=== PATIENT | female | born 1960 | race Caucasian/White ===

== ENCOUNTER → 2016-09-19 | Outpatient (CLI) | payer BC, OTHER ==
[~2016-09-19] MED LIST: ADVAIR 100-501 EACH; ADVAIRDISKUS; ALBUTEROL INH IH; ALBUTEROL2.5 MG/31 PO; ALPRAZOLAM; ALPRAZOLAM 0.50.5 M1 PO; AMARYL2 MG; AMBIEN 10 MG TA10 MG PO; AMBIEN 5 MG TABL5 M1; AUGMENTIN 875875 M1 PO; AVELOX 400 MG400 MG OR; BUTORPHANOLNS2 NASAL; CENESTIN0.9 MG PO; CIPROFLOXACIN500 M1 PO; CYCLOBENZAPRINE10 MG PO; DAZIDOX10 MG PO; DESYREL; DESYREL100 MG OR; DESYREL100 MG PO; DESYREL150 MG PO; DIFLUCAN150 MG PO; DILAUDID 2 MG TA2 MG PO; DILAUDID 4 MG TA4 M1 PO; DOLOPHINE HCL10 MG PO; DOXYCYCLINE 10100 MG PO; EFFEXOR75 MG PO; ENDOCET 10-3251 EACH PO; ESTRADIOL 1 MG T1 M1 PO; ESTROPIPATE3 MG OR; FLEXERIL; FLEXERIL PO; FUROSEMIDE 40 M40 MG PO; GOLYTELY4000 M1 PO; HYDROXYZINE HCL10 M1 PO; K-DUR 20 MEQ T20 MEQ PO; LASIX 40 MG TAB40 M1 OR; LASIX 40 MG TAB40 M1 PO; LEVAQUIN 500 M500 M7 PO; LIDODERM 5%1 PATC1 TOP; LYRICA; LYRICA100 MG; LYRICA100 MG PO; METFORMIN HCL500 MG; METHADONE; MS CONTIN 30 MG30 M1 PO; NAPROSYN375 MG PO; NASONEB NASAL1 EACH IH; NICOTINE TRANSD21 M1 TD; NITROFURANTOIN100 MG PO; NORCO 5-325 TA1 EACH; NORCO 5-325 TA1 EACH PO; OGEN PO; OXYCONTIN10 M1 OR; PENNSAID112 GM; PERCOCET 5-3251 EACH PO; POTASSIUM20; POTASSIUM20 PO; PREDNISONE 10 M10 M1 PO; PREDNISONE 10 M10 MG; PREDNISONE 20 M20 M1 PO; PREDNISONE 20 M20 MG PO; PROTONIX40 M2 PO; PROVENTIL HFA6.7 G1 INH; QUETIAPINE FUMA25 MG PO; RELISTOR8 MG/0.4 M SQ; REMERON15 MG PO; SEROQUEL; SEROQUEL 100 M100 M1 PO; SEROQUEL 100 M100 MG PO; SEROQUEL 25 MG25 M1 PO; SEROQUEL400 MG OR; SUBOXONE 8 MG-1 EAC3 SL; TESSALON200 MG PO; TIZANIDINE HCL4 M1 PO; TRAZADONE; TRAZODONE HCL100 MG PO; TUSSIN COU10 MG/5 ML PO; VALIUM5 MG PO; VENLAFAXIN75 MG/1 T1 PO; XANAX 0.5 MG0.5 M1 PO; ZANAFLEX4 MG; ZOFRAN ODT4 MG PO; ZPAK PO
== END ==
LOC: MRI 10:32
DX: S73.102A Unspecified sprain of left hip, initial encounter (principal); M87.852 Other osteonecrosis, left femur; M25.552 Pain in left hip

== ENCOUNTER 2017-02-20 05:26 | Day surgery (SDC) | payer BC, OTHER ==
[~2017-02-20] VITALS: Ht 157.5 cm; Wt 55.3 kg
--- NOTE | ~2017-02-20 | O ---
[facility] [place] [address] OPERATIVE REPORT Name: ADAMS CAICEDO Room #: DEP [facility] M.R.#: [id number] Admission: 02/20/17 Attend Phys: Noah Kim MD Discharge: 02/20/17 Date of : 62 Report #: [id number] THIS REPORT FOR: //name// CC: NIKI Kim DATE OF SERVICE: 02/20/2017 PREOPERATIVE DIAGNOSIS: Right cubital tunnel syndrome. POSTOPERATIVE DIAGNOSIS: Right cubital tunnel syndrome. PROCEDURE: Right ulnar nerve transposition, subcutaneous. SURGEON: Noah Kim MD SAXOPHONE TEACHER: HOWARD Justice. ANESTHETIC: General. INDICATIONS: See hospital H and P. DESCRIPTION OF PROCEDURE: After adequate general anesthesia had been obtained, the patient's right upper extremity was prepped and draped in the usual meticulous sterile fashion. Limb was gravity exsanguinated and tourniquet inflated to 200 torr. A small curvilinear incision was made overlying the medial epicondyle. Subq was divided using gentle spreading technique. Hemostasis obtained with bipolar cautery. The ulnar nerve was identified proximal to the cubital tunnel, it was carefully mobilized and the fascia released proximally up to the level of the intermuscular septum. We then traced the ulnar nerve distally, released the cubital tunnel and traced the ulnar nerve out distally into muscle belly with into the muscle. The nerve was then mobilized carefully anterior to the medial epicondyle. We took the elbow through range of motion and it was noted under any tension in either flexion or extension. Then, the fascial flap was created using the flexor pronator fascia. This was then used to secure the nerve in its position anterior to the epicondyle by suturing the fascia on to itself. The nerve was taken through a full range of motion once again once the sling was in position and no tension was noted. The wound was irrigated copiously, meticulous hemostasis obtained. Deeper layer closed with 2-0 Monocryl, subq closed with 3-0 Monocryl, skin closed with a running subcuticular 2-0 Prolene. [facility] [address] [place] [address] OPERATIVE REPORT Name: ADAMS CAICEDO Room #: DEP [facility].#: [id number] Admission: 02/20/17 Attend Phys: Noah Kim MD Discharge: 02/20/17 Date of : 62 Report #: [id number] were applied and sterile compressive dressing was complied. Tourniquet deflated. Long-arm splint applied. <ELECTRONICALLY SIGNED> By: Noah Kim MD 02/26/172008 1614 1807 Noah Kim MD /nt
[~2017-02-20 05:26] MED LIST changes: +ALBUTEROL2.5 MG/31 INH; -ALBUTEROL2.5 MG/31 PO; +LINZESS290 MCG PO; +OXYCONTIN20 M1 PO; +SYMBICORT80 MCG/4.1 INH
[2017-02-20 13:35] LABS: CALCIUM 9.1 mg/dL (8.5-10.1); CREATININE 1.1 mg/dL (0.6-1.0); POTASSIUM 3.8 mmol/L (3.5-5.1)
[2017-02-20 13:45] VITALS: BP 118/72
[2017-02-20 16:42] VITALS: BP 118/72
== END 2017-02-20 17:57 | disposition home or self-care (01) ==
LOC: TBA 05:26 → OR 05:26
PROVIDERS: Anesthesiology
DX: G56.21 Lesion of ulnar nerve, right upper limb (principal); J44.9 Chronic obstructive pulmonary disease, unspecified; G43.909 Migraine, unspecified, not intractable, without status migrainosus; G35 Multiple sclerosis; F17.210 Nicotine dependence, cigarettes, uncomplicated; F41.8 Other specified anxiety disorders; Z98.890 Other specified postprocedural states; Z86.73 Personal history of transient ischemic attack (TIA), and cerebral infarction without residual deficits; Z85.828 Personal history of other malignant neoplasm of skin; Z87.442 Personal history of urinary calculi; Z90.710 Acquired absence of both cervix and uterus; Z88.6 Allergy status to analgesic agent; Z88.8 Allergy status to other drugs, medicaments and biological substances
CPT/HCPCS: 50010; 50101; 50386; 56524; 56525; 56527; 57091; 62110; 62900; 70005

== ENCOUNTER → 2019-04-11 | Outpatient (CLI) | payer BC, OTHER | LOC: RAD 10:59 | DX: Z12.31 Encounter for screening mammogram for malignant neoplasm of breast (principal) ==

== ENCOUNTER → 2019-07-14 | Outpatient (CLI) | payer OTHER | LOC: ULTRA 14:52 | DX: I70.0 Atherosclerosis of aorta (principal) ==

== ENCOUNTER 2020-05-25 15:23 | Emergency (ER) | payer OTHER ==
[~2020-05-25] VITALS: Ht 157.5 cm; Wt 49.0 kg
[2020-05-25 16:27] LABS: BASOPHILS 0.9 % (0.0-2.0); EOSINOPHILS 1.5 % (0.0-3.0); HEMATOCRIT 42.3 % (37.0-47.0); HEMOGLOBIN 14.9 gm/dL (12.0-15.0); LYMPHOCYTES 18.2 % (24.0-44.0); MCH 33.3 pg (26.0-34.0); MCHC 35.2 g/dL (28.0-37.0); MCV 94.6 fL (80.0-100.0); MONOCYTES 6.3 % (1.0-8.0); PLATELET COUNT 245 thou/uL (150-400); POLYS 73.1 % (36.0-66.0); RBC 4.47 mil/uL (4.20-5.00); RDW 12.9 % (10.5-14.5); WBC 6.8 thou/uL (4.0-11.0)
[2020-05-25 16:30] LABS: CALCIUM 9.2 mg/dL (8.5-10.1); CREATININE 1.8 mg/dL (0.6-1.0); POTASSIUM 3.1 mmol/L (3.5-5.1)
[2020-05-25 16:36] LABS: ALBUMIN 3.4 g/dL (3.4-5.0); TOTAL BILIRUBIN 0.5 mg/dL (0.2-1.0)
[2020-05-25] MEDS ORDERED: COMPAZINE25 MG RECTAL (17:40)
[2020-05-25 18:37] VITALS: BP 179/71
--- NOTE | 2020-05-26 07:21 | EKG ---
[facility] [place] [address] ELECTROCARDIOGRAM REPORT Name: ADAMS CAICEDO Room #: [facility] Derik.Mikhail#: [id number] Admission: 05/25/20 Attend Phys: Discharge: 05/25/20 Date of : 62 Report #: [id number] THIS REPORT FOR: cc: Todd Meneses MD, Neal A. MD Santiago, Patrick MD [facility] ~ THIS REPORT FOR: //name// [facility] ED Test Date: 2020-05-25 Test Time: 15:41:22 Pat Name: ADAMS CAICEDO Department: Room: Gender: F Orange Peel Operator: : 1960 Requested By: Clement Barnett Order Number: [id number] MD: Francisco Persaud Measurements Intervals [place] Rate: 94 P: 78 [place]: 174 QRS: 28 QRSD: 74 T: 36 QT: 406 QTc: 508 Interpretive Statements Sinus rhythm Biatrial enlargement Probable LVH with secondary repol abnrm Prolonged QT interval Baseline wander in lead(s) V1 Compared to ECG 08/28/2013 20:33:42 Atrial abnormality now present Prolonged QT interval now present Electronically Signed On 05-26-2020 7:21:28 MAIL SORTER by Francisco Persaud [email or web address] <ELECTRONICALLY SIGNED> By: Francisco Persaud MD, FACC 05/26/20 0721 1541 1541 Francisco Persaud MD, FAC /EPI
== END 2020-05-25 18:37 | disposition home or self-care (01) ==
LOC: ER 15:23
PROVIDERS: Nurse Practitioner
DX: G43.909 Migraine, unspecified, not intractable, without status migrainosus (principal); J44.9 Chronic obstructive pulmonary disease, unspecified; Z90.710 Acquired absence of both cervix and uterus; Z79.899 Other long term (current) drug therapy; Z88.1 Allergy status to other antibiotic agents; Z88.8 Allergy status to other drugs, medicaments and biological substances

== ENCOUNTER 2020-05-29 07:58 | Emergency (ER) | payer OTHER ==
[~2020-05-29] VITALS: Ht 160 cm; Wt 69.8 kg
[~2020-05-29 07:58] MED LIST changes: +COMPAZINE25 MG RECTAL
[2020-05-29] MEDS ORDERED: ZESTRIL10 MG PO (11:36)
[2020-05-29 11:54] VITALS: BP 120/63
== END 2020-05-29 12:19 | disposition home or self-care (01) ==
LOC: ER 07:58
DX: G43.909 Migraine, unspecified, not intractable, without status migrainosus (principal); I10 Essential (primary) hypertension; J44.9 Chronic obstructive pulmonary disease, unspecified; Z90.710 Acquired absence of both cervix and uterus; Z79.899 Other long term (current) drug therapy; Z88.1 Allergy status to other antibiotic agents; Z88.8 Allergy status to other drugs, medicaments and biological substances; Z20.828 Contact with and (suspected) exposure to other viral communicable diseases

== ENCOUNTER 2020-06-09 11:13 | Inpatient (IN) | payer OTHER ==
[~2020-06-09] VITALS: Ht 152.4 cm; Wt 51.4 kg
[~2020-06-09 11:13] MED LIST changes: +ZESTRIL10 MG PO
[2020-06-09 11:22] VITALS: BP 215/80
[2020-06-09 14:58] LABS: AMP/METHAMP Negative (Negative); BARBITURATES Negative (Negative); BENZODIAZEPINES POSITIVE (Negative); COCAINE Negative (Negative); METHADONE Negative (Negative); OPIATES Negative (Negative); PCP Negative (Negative)
[2020-06-09 18:34] LABS: ABSOLUTE NEUTROPHILS 9.8 thou/uL (1.4-8.2); BASOPHILS 0.2 % (0.0-2.0); EOSINOPHILS 1.3 % (0.0-3.0); HEMATOCRIT 40.6 % (37.0-47.0); HEMOGLOBIN 13.3 gm/dL (12.0-15.0); LYMPHOCYTES 14.7 % (24.0-44.0); MCH 32.1 pg (26.0-34.0); MCHC 32.7 g/dL (28.0-37.0); MCV 98.2 fL (80.0-100.0); MONOCYTES 2.8 % (1.0-8.0); PLATELET COUNT 192 thou/uL (150-400); RBC 4.14 mil/uL (4.20-5.00); RDW 14.3 % (10.5-14.5); WBC 12.1 thou/uL (4.0-11.0)
[2020-06-09 18:42] LABS: CALCIUM 8.1 mg/dL (8.5-10.1); CREATININE 1.3 mg/dL (0.6-1.0); POTASSIUM 3.4 mmol/L (3.5-5.1)
[2020-06-09 18:58] LABS: TROPONIN-I 0.19 ng/mL (<0.06)
--- NOTE | 2020-06-09 19:13 | NUR ---
RETURNED FROM CT SCAN
[2020-06-09 20:54] VITALS: BP 126/54
[2020-06-09 21:46] VITALS: BP 135/62
[2020-06-09 22:00] VITALS: BP 160/74
[2020-06-09 23:54] VITALS: BP 153/53
--- NOTE | 2020-06-10 02:25 | NUR ---
PATIENT WAS A NEW ADMISSION TO THE UNIT THIS SHIFT. SHE ARRIVED VIA CART FROM THE ER AND WAS ABLE TO AMBULATE TO THE BED WITH ASSISTANCE INCIDENT FREE. PATIENT IS FULLY ALERT AND ORIENTED. DURING THE COURSE OF THE ADMISSION PATIENT STATED ALERTED NURSE TO POTENTIAL COVID SYMPTOMS THAT REQUIRED NURSE TO CHECK WITH PROVIDER. COVID SWAB ORDERED FOR PATIENT BUT DUE TO CENSUS PATIENT NOT ABLE TO TRANSFER OFF UNIT. DOOR CLOSED WITH NURSING STAFF SUPPLIED N95 AND GOWNS. PATIENT HAS STATED TO THIS NURSE THAT SHE FELL IN EMERGENCY ROOM EARLIER IN DAY. SHE STATED NO PAIN OR INJURY FROM FALL TO NURSE AND ACCOUNTS RECEIVABLE SUPERVISOR ON UNIT. HIGH FALL RISK WITH ALL PRECAUTIONS TAKEN. NURSE TO CONTINUE MONITORING.
[2020-06-10 04:12] VITALS: BP 168/79
[2020-06-10 05:25] VITALS: BP 149/78
[2020-06-10 06:27] LABS: HEMATOCRIT 38.4 % (37.0-47.0); HEMOGLOBIN 12.7 gm/dL (12.0-15.0); MCH 32.3 pg (26.0-34.0); MCHC 33.2 g/dL (28.0-37.0); MCV 97.2 fL (80.0-100.0); RBC 3.95 mil/uL (4.20-5.00); RDW 14.1 % (10.5-14.5); WBC 8.3 thou/uL (4.0-11.0)
--- NOTE | 2020-06-10 06:27 | NUR ---
PATIENT SLEPT SOME OF THE NIGHT. A&0X4. FALL PRECAUTIONS ON PLACE. UPX1 TO BSC. COVID (-). NO COMPLAINTS OF CHEST PAIN. NO COMPLAINTS OF SOA; ON 2L. CONTINUING TO ASSESS ACCORDING TO POC.
[2020-06-10 06:46] LABS: ALBUMIN 3.1 g/dL (3.4-5.0); CALCIUM 8.5 mg/dL (8.5-10.1); CREATININE 1.4 mg/dL (0.6-1.0); TOTAL BILIRUBIN 0.2 mg/dL (0.2-1.0); TROPONIN-I 0.12 ng/mL (<0.06)
[2020-06-10 06:47] LABS: POTASSIUM 4.6 mmol/L (3.5-5.1)
--- NOTE | 2020-06-10 07:20 | EKG ---
[address] [place] [address] ELECTROCARDIOGRAM REPORT Name: ADAMS CAICEDO Room #: 209-P ADM IN M.R.#: [id number] Admission: 06/09/20 Attend Phys: Todd Meneses MD Discharge: Date of : 62 Report #: [id number] [facility] ED Test Date: 2020-06-09 Test Time: 17:45:03 Pat Name: ADAMS CAICEDO Department: Room: 209 Gender: F Flask Cleaner: BETTYE : 1960 Requested By: Clement Barnett Order Number: [id number] MD: Francisco Persaud Measurements Intervals [place] Rate: 62 P: 63 VA: 136 QRS: 21 QRSD: 66 T: 94 QT: 411 QTc: 418 Interpretive Statements Sinus rhythm Probable left atrial enlargement Nonspecific T abnormalities, lateral leads Compared to ECG 05/25/2020 15:41:22 T-wave abnormality now present Prolonged QT interval no longer present Electronically Signed On 06-10-2020 7:20:04 TV PRODUCTION ASSISTANT by Francisco Persaud [email or web address] <ELECTRONICALLY SIGNED> By: Francisco Persaud MD, [facility] 06/10/20 0720 1745 174 Francisco Persaud MD, [facility] /EPI
[2020-06-10 08:23] VITALS: BP 151/63
--- NOTE | 2020-06-10 11:05 | 2DMMODE ---
[facility] [place] [address] 2 D/M-MODE ECHOCARDIOGRAM Name: ADAMS CAICEDO Room #: 209-P ADM IN M.R.#: [id number] Admission: 06/09/20 Attend Phys: Todd Meneses MD Discharge: Date of : 62 Report #: [id number] THIS REPORT FOR: cc: Todd Meneses MD, Neal A. MD Santiago, Patrick MD [facility] ~ APPROVED REPORT Study performed: 06/10/2020 10:18:31 EXAM: Comprehensive 2D, Doppler, and color-flow Echocardiogram Patient Location: Bedside Room #: 209 Status: routine BSA: 1.46 HR: 85 bpm BP: 151/63 mmHg Rhythm: NSR Other Information Study Quality: Good Indications Chest pain, elevated troponin. Hx: COPD, CVA, PVD. 2D Dimensions RVDd: 32.62 mm IVSd: 12.00 (7-11mm) LVOT Diam: 19.00 (18-24mm) LVDd: 40.00 mm PWd: 12.00 (7-11mm) Ascending Ao: 28.00 (22-36mm) LVDs: 29.00 (25-40mm) Aortic Root: 29.00 mm Volumes Left Atrial Volume (Systole) Single Plane 4CH: 50.48 mL Single Plane 2CH: 57.18 mL LA ESV Index: 40.00 mL/m2 Aortic Valve AoV Peak Joe.: 1.20 m/s AO Peak Gr.: 5.73 mmHg LVOT Max P.44 mmHg LVOT Max V: 0.93 m/s CELINE Vmax: 2.16 cm2 [facility] [address] [address] 2 D/M-MODE ECHOCARDIOGRAM Name: MINORMARLONDANTE WILKINSONZI NAHID Room #: 209-P [facility]#: [id number] Admission: 06/09/20 Attend Phys: Todd Meneses, Discharge: Date of : 62 Report #: [id number] Mitral Valve E/A Ratio: 1.3 MV Decel. Time: 178.70 ms MV E Max Jeo.: 1.13 m/s MV A Joe.: 0.86 m/s MV PHT: 51.82 ms IVRT: 72.66 ms Pulmonary Valve PV Peak Joe.: 1.09 m/s PV Peak Gr.: 4.72 mmHg Pulmonary Vein P Vein S: 0.80 m/s P Vein D: 0.56 m/s P Vein S/D Ratio: 1.43 Tricuspid Valve TR Peak Joe.: 2.80 m/s RAP Estimate: 10.00 mmHg TR Peak Gr.: 31.37 mmHg PA Pressure: 41.00 mmHg Left Ventricle The left ventricle is normal size. There is normal LV segmental wall motion. Mild concentric left ventricular hypertrophy. Left ventricular systolic function is normal. LVEF is 55-60%. Moderate diastolic dysfunction is present. Right Ventricle The right ventricle is normal size. The right ventricular systolic function is normal. Atria Left atrium is mildly dilated. The right atrium size is normal. Aortic Valve Aortic valve leaflets are mildly thickened and calcified. No aortic regurgitation is present. There is no aortic valvular stenosis. Mitral Valve Mitral valve leaflets are mildly thickened and calcified. Moderate mitral regurgitation. No evidence of mitral valve stenosis. [facility] [address] [address] 2 D/M-MODE ECHOCARDIOGRAM Name: MINORMARLONJAJAADAMS Room #: 209-P [facility] IN M.R.#: [id number] Admission: 06/09/20 Attend Phys: Todd Meneses, Discharge: Date of : 62 Report #: [id number] Tricuspid Valve The tricuspid valve is normal in structure. Trace tricuspid regurgitation. Estimated PAP is 40mmHg. Pulmonic Valve The pulmonary valve is normal in structure. There is no pulmonic valvular regurgitation. Great Vessels The aortic root is normal in size. The ascending aorta is normal in size. IVC is dilated and collapses <50% with inspiration. <Conclusion> Normal left ventricle size Mild concentric hypertrophy Grade 1 diastolic dysfunction EF 55% Normal right ventricular size/function Left atrium mildly dilated Color-flow Doppler study was performed aortic/mitral/tricuspid/valve. Mild aortic valve calcification without stenosis Moderate/eccentric mitral valve insufficiency Trace tricuspid valve insufficiency Pulmonary systolic pressure estimated at 40 mmHg No pericardial effusion <ELECTRONICALLY SIGNED> By: Francisco Persaud MD, FACC 06/10/201104 04 04 Francisco Persaud MD, FACC /INF
[2020-06-10 11:38] VITALS: BP 151/63
[2020-06-10 11:43] VITALS: BP 177/73
--- NOTE | 2020-06-10 14:11 | NUR ---
AAOX4. DENIES CP, SOA. DISCHARGING TO HOME AFTER ECHO. GIVEN LITERATURE R/T CHRONIC MIGRAINES. HOME WITH HER .
== END 2020-06-10 15:29 | disposition home or self-care (01) | DRG 915 ==
LOC: ER 11:13 → EROBS 20:23 → 2N 20:23
PROVIDERS: Emergency Medicine; Nurse Practitioner; ADMIT Family Medicine; ATTEND Family Medicine
DX: T78.2XXA Anaphylactic shock, unspecified, initial encounter (principal); I21.4 Non-ST elevation (NSTEMI) myocardial infarction; G43.909 Migraine, unspecified, not intractable, without status migrainosus; J44.9 Chronic obstructive pulmonary disease, unspecified; F41.9 Anxiety disorder, unspecified; F43.10 Post-traumatic stress disorder, unspecified; G89.29 Other chronic pain; M54.5 Low back pain; F17.210 Nicotine dependence, cigarettes, uncomplicated; F12.90 Cannabis use, unspecified, uncomplicated; Y84.8 Other medical procedures as the cause of abnormal reaction of the patient, or of later complication, without mention of misadventure at the time of the procedure; Y92.89 Other specified places as the place of occurrence of the external cause; Z90.710 Acquired absence of both cervix and uterus; Z86.73 Personal history of transient ischemic attack (TIA), and cerebral infarction without residual deficits; Z88.6 Allergy status to analgesic agent; Z88.8 Allergy status to other drugs, medicaments and biological substances; Z20.828 Contact with and (suspected) exposure to other viral communicable diseases
CPT/HCPCS: 10081

== ENCOUNTER 2020-06-15 08:49 | Inpatient (IN) | payer OTHER ==
[~2020-06-15] VITALS: Ht 154.9 cm; Wt 54.5 kg
[2020-06-15 09:06] VITALS: BP 241/139
[2020-06-15 09:38] LABS: BASOPHILS 0.4 % (0.0-2.0); HEMATOCRIT 49.1 % (37.0-47.0); HEMOGLOBIN 16.8 gm/dL (12.0-15.0); LYMPHOCYTES 6.3 % (24.0-44.0); MCH 32.4 pg (26.0-34.0); MCHC 34.3 g/dL (28.0-37.0); MCV 94.7 fL (80.0-100.0); PLATELET COUNT 324 thou/uL (150-400); POLYS 89.3 % (36.0-66.0); RBC 5.18 mil/uL (4.20-5.00); RDW 13.7 % (10.5-14.5); WBC 15.7 thou/uL (4.0-11.0)
[2020-06-15 09:53] LABS: CREATININE 1.4 mg/dL (0.6-1.0); POTASSIUM 3.6 mmol/L (3.5-5.1)
[2020-06-15 09:54] LABS: APTT 28.6 Seconds (24.5-32.8); INR 1.1; PROTIME 11.5 Seconds (9.3-11.4)
[2020-06-15 10:03] LABS: MAGNESIUM 1.7 mg/dL (1.8-2.4); TOTAL BILIRUBIN 0.6 mg/dL (0.2-1.0); TOTAL PROTEIN 7.9 g/dL (6.4-8.2); TROPONIN-I 0.15 ng/mL (<0.06)
--- NOTE | 2020-06-15 12:46 | EKG ---
[place] [address] [facility] [place] [address] ELECTROCARDIOGRAM REPORT Name: ADAMS CAICEDO [id number] Admission: 06/15/20 Attend Phys: Discharge: Date of : 62 Report #: [id number] [facility] ED Test Date: 2020-06-15 Test Time: 09:13:19 Pat Name: ADAMS CAICEDO Department: Room: Gender: F Cut Out Marker: MURIEL : 1960 Requested By: Duke Mascorro Order Number: [id number] MD: Francisco Persaud Measurements Intervals [place] Rate: 130 P: 88 VT: 141 QRS: 23 QRSD: 71 T: QT: 331 QTc: 487 Interpretive Statements Sinus tachycardia Consider right atrial enlargement Consider left ventricular hypertrophy Borderline prolonged QT interval Compared to ECG 06/09/2020 17:45:03 Sinus rhythm no longer present T-wave abnormality no longer present Electronically Signed On 06-15-2020 12:46:07 REWINDER OPERATOR by Francisco Persaud [email or web address] <ELECTRONICALLY SIGNED> By: Francisco Persaud MD, [facility] 06/15/20 1246 2 2 Francisco Persaud MD, FACC /EPI
--- NOTE | 2020-06-15 14:56 | NUR ---
Patient is a [address] y/[address] female of Dr. Meneses presenting to the ED c/o BANG to her posterior head. She notes her BANG was "all over " earlier. Patient states her sx initially started about 1 month ago and started worsening yesterday. She measured her BP x3 yesterday, with systolic pressures of 222, 223, and 171. Per patient's , patient took her medication and a migraine medication prior to her blood pressure dropping to 171. Last night, she vomited several times. This morning while she was at home, her BP was 253/139 and her HR was 122. Per patient's , patient was started on Lisinopril by Dr. Cisneros on 06/07/20. Patient's notes that this was the first time she's ever been started on a HTN medication. He further reports she was seen by [facility] on 06/09/20. She was admitted at that time and discharged the following day. While she was hospitalized, she underwent an echocardiogram and had an elevated troponin. Patient does have a Hx of CVA with deficits of left-sided weakness. Dr. Meneses agrees with plan for admission to CCU. Dr. Meneses advised CTA head and neck to r/o aneurysm. Consults to Neuro with Dr. Burnett and cardiology with Dr. Hadley have been called in. The patient has her spouse listed as contact of Saran Perales with phone numbers of [phone] or cell of [phone]. The patient discharged on 06-10-2020 and required no CM intervention at that time. CM will follow case for any discharge needs.
[2020-06-16] VITALS (10 sets, daily range): BP systolic 124–169; BP diastolic 59–91
--- NOTE | 2020-06-16 00:08 | NUR ---
TALKED WITH DR AGUILAR ABOUT ELEVATED TROP. PT DENIES CHEST PAIN, AND IS TRENDING DOWN FROM LAST TROP. PER DR AGUILAR, NO NEW ORDERS FOR FURTHER TROPONINS.
--- NOTE | 2020-06-16 05:40 | NUR ---
PATIENTS CARE WERE ASSUMED AFTER TRANSFER. PATIENT WAS ASSESSED AND MEDS WERE PASSED. PATIENT WANTS MORE PAIN MEDS. PATIENT HAS CARDIO CONSULT. THIS PATIENT WAS VERY SADATED WHEN SHE COME FROM THE ER. SUNDEEP TO UP MED LIST IN THE MORNING
[2020-06-16 06:53] LABS: ANION GAP 16 mmol/L (7-16); BUN 14 mg/dL (7-18); CALCIUM 8.9 mg/dL (8.5-10.1); CHLORIDE 97 mmol/L (98-107); CHOLESTEROL 301 mg/dL (<200); CO2 21 mmol/L (21-32); CREATININE 1.2 mg/dL (0.6-1.0); GLUCOSE 87 mg/dL (74-106); HDL CHOLESTEROL 72 mg/dL (>40); LDL CHOLESTEROL 198 mg/dL (<100); POTASSIUM 3.7 mmol/L (3.5-5.1); SODIUM 134 mmol/L (136-145); TC:HDL 4.2 Ratio (Not establshd); TRIGLYCERIDE 157 mg/dL (<150); TROPONIN-I 0.14 ng/mL (<0.06); VLDL 31 mg/dL (<40)
[2020-06-16 06:54] LABS: SERUM ASSESSMENT Clear
--- NOTE | 2020-06-16 14:50 | NUR ---
ASSESSMENT: CM REVIEWED CHART AND SPOKE WITH PT AND HER WHO WAS AT THE BEDSIDE. PT IS ALERT AND ORIENTED X4. PT WAS ADMITTED DUE TO HYPERTENSIVE UGRENCY AND INTRACTIBLE HEADACHE. PT DOES ALSO HAVE A HX OF CVA AND LEFT SIDED WEAKNESS. PT REPORTS LIVING AT HOME WITH HER SPOUSE. PT HAS ABOUT 7 STEPS SHE HAS TO USE IN THE HOME. PT REPORT SHE CAN NORMALLY WALK INDEPENDENTLY IN THE HOME BUT DOES HAVE A WALKER AND HAS A WHEELCHAIR FOR OUTSIDE OF THE HOME. PT REPORTS THAT SHE HAS NOT HAD HH IN THE PAST. PT WAS ON CARDENE GTT BUT THIS HAS BEEN DISCONTINUED. PLANS ARE FOR PATIENT TO POSSIBLE DISCHARGE HOME TOMORROW. CM WILL CONTINUE TO FOLLOW TO ASSIST NEDED.
--- NOTE | 2020-06-16 18:47 | NUR ---
PT CARE ASSUMED AT 0700. ASSESSMENTS CHARTED. MEDICATIONS CHARTED. RAC IV. LFA IV. SINUS RHYTHM. PT DROWSY ALL DAY. PT FOCUSED ON PAIN MEDS AND DIAZEPAM; WANTS TO TAKE THEM BOTH TOGETHER. NUC MED STRESS TEST TOMORROW. NPO AFTER 0000. NO NITRO AFTER 0000.
[2020-06-17 04:45] VITALS: BP 105/50
[2020-06-17] MEDS ORDERED: CLOPIDOGREL75 MG PO (07:28)
[2020-06-17] MEDS ORDERED: LIPITOR40 MG PO (07:33)
[2020-06-17] MEDS ORDERED: METOPROLOL TART25 MG PO (07:33)
[2020-06-17] MEDS ORDERED: LYRICA 75 MG CA75 MG PO (07:34)
[2020-06-17] MEDS ORDERED: AMITRIPTYLINE H25 M2 PO (07:35)
--- NOTE | 2020-06-17 07:37 | NUR ---
PATIENTS CARE WERE ASSUMED AT SHIFT CHANGE. PATIENT WAS ASSESSED AND MEDS WERE PASSED. ALL NARCOTICS AND SADATIVE MEDS WERE HELD THIS SHIFT. DR. URBANO WAS INFORMED AND AGREED. PATIENT O2 SATS WERE FOUND AT 88% AND PLACED ON 2L O2 N.C. THE BED IS IN A LOW AND LOCKED POSITION.
[2020-06-17 08:05] VITALS: BP 160/80
[2020-06-17 08:14] VITALS: BP 160/80
[2020-06-17 11:47] VITALS: BP 169/67
[2020-06-17 12:05] VITALS: BP 169/67
[2020-06-17 14:27] VITALS: BP 169/67
--- NOTE | 2020-06-17 16:52 | NUR ---
PT CARE ASSUMED AT 0700. ASSESSMENTS CHARTED. MEDICATIONS CHARTED. RAC IV. LFA IV. SINUS RHYTHM. NUC MED STRESS TEST PERFORMED. PT DISCHARGED HOME. DISCHARGE PAPERWORK SIGNED. PRESCRIPTIONS DELIVERED. TELEMETRY D/C'D. IV D/C'D.
== END 2020-06-17 15:01 | disposition home or self-care (01) | DRG 682 ==
LOC: ER 08:49 → EROBS 13:38 → 2N 13:38
PROVIDERS: Emergency Medicine; Nurse Practitioner; ADMIT Family Medicine; ATTEND Family Medicine
DX: I12.9 Hypertensive chronic kidney disease with stage 1 through stage 4 chronic kidney disease, or unspecified chronic kidney disease (principal); R65.11 Systemic inflammatory response syndrome (SIRS) of non-infectious origin with acute organ dysfunction; N17.9 Acute kidney failure, unspecified; I69.354 Hemiplegia and hemiparesis following cerebral infarction affecting left non-dominant side; N17.8 Other acute kidney failure; I16.0 Hypertensive urgency; J44.9 Chronic obstructive pulmonary disease, unspecified; J45.909 Unspecified asthma, uncomplicated; F41.9 Anxiety disorder, unspecified; G43.909 Migraine, unspecified, not intractable, without status migrainosus; F12.90 Cannabis use, unspecified, uncomplicated; N18.9 Chronic kidney disease, unspecified; E86.0 Dehydration; R73.9 Hyperglycemia, unspecified; F17.210 Nicotine dependence, cigarettes, uncomplicated; R00.0 Tachycardia, unspecified; I65.22 Occlusion and stenosis of left carotid artery; G89.29 Other chronic pain; E78.5 Hyperlipidemia, unspecified; Z71.6 Tobacco abuse counseling; Z90.710 Acquired absence of both cervix and uterus; Z90.722 Acquired absence of ovaries, bilateral; Z88.1 Allergy status to other antibiotic agents; Z88.8 Allergy status to other drugs, medicaments and biological substances; Z88.6 Allergy status to analgesic agent; Z82.49 Family history of ischemic heart disease and other diseases of the circulatory system
CPT/HCPCS: 10081

== ENCOUNTER 2020-06-19 12:44 | Inpatient (IN) | payer OTHER ==
[~2020-06-19] VITALS: Ht 154.9 cm; Wt 49.9 kg
[~2020-06-19 12:44] MED LIST changes: +AMITRIPTYLINE H25 M2 PO; +CLOPIDOGREL75 MG PO; +LIPITOR40 MG PO; +LYRICA 75 MG CA75 MG PO; +METOPROLOL TART25 MG PO
[2020-06-19 12:53] VITALS: BP 195/96
[2020-06-19 13:58] LABS: BE(vivo) 0 mmol/L (-2 to +3); HCO3 24.7 mmol/L (22.0-26.0); PCO2 40.5 mmHg (35.0-45.0); PO2 86.3 mmHg (80.0-100.0); pH 7.403 (7.360-7.450); sO2 96.6 % (92.0-98.0)
[2020-06-19 14:12] LABS: ABSOLUTE NEUTROPHILS 8.3 thou/uL (1.4-8.2); BASOPHILS 0.5 % (0.0-2.0); EOSINOPHILS 0.2 % (0.0-3.0); HEMATOCRIT 41.6 % (37.0-47.0); HEMOGLOBIN 13.7 gm/dL (12.0-15.0); LYMPHOCYTES 8.1 % (24.0-44.0); MCH 31.9 pg (26.0-34.0); MCHC 32.9 g/dL (28.0-37.0); MCV 97.1 fL (80.0-100.0); MONOCYTES 5.7 % (1.0-8.0); PLATELET COUNT 168 thou/uL (150-400); POLYS 85.5 % (36.0-66.0); RBC 4.28 mil/uL (4.20-5.00); RDW 14.1 % (10.5-14.5); WBC 9.7 thou/uL (4.0-11.0)
[2020-06-19 14:51] LABS: CALCIUM 9.2 mg/dL (8.5-10.1); CREATININE 1.4 mg/dL (0.6-1.0); POTASSIUM 3.8 mmol/L (3.5-5.1)
[2020-06-19 14:53] LABS: APTT 26.6 Seconds (24.5-32.8); INR 1.1; PROTIME 11.2 Seconds (9.3-11.4)
[2020-06-19 15:05] LABS: ALBUMIN 3.2 g/dL (3.4-5.0); TOTAL BILIRUBIN 0.5 mg/dL (0.2-1.0); TOTAL PROTEIN 6.3 g/dL (6.4-8.2); TROPONIN-I 0.13 ng/mL (<0.06)
[2020-06-19 16:46] VITALS: BP 180/88
[2020-06-19 18:03] LABS: URINE BILIRUBIN NEGATIVE (Negative); URINE BLOOD NEGATIVE (Negative); URINE CLARITY CLEAR; URINE COLOR YELLOW; URINE GLUCOSE-RANDOM* NEGATIVE (Negative); URINE KETONES NEGATIVE (Negative); URINE LEUKOCYTES-REFLEX NEGATIVE (Negative); URINE NITRITE-REFLEX NEGATIVE (Negative); URINE PROTEIN (DIPSTICK) 1+ (Negative); URINE UROBILINOGEN 0.2 E.U./dl (0.2-1.0)
[2020-06-19 18:15] LABS: BACTERIA-REFLEX None Seen /HPF (None Seen); CASTS None Seen /LPF (None Seen); CRYSTALS None Seen /LPF (None Seen); SQUAMOUS >10 Many /LPF (0-3); URINE RBC 0-2 Rare /HPF (0-2); URINE WBC-REFLEX 0-5 Rare /HPF (0-5)
[2020-06-19 20:38] VITALS: BP 152/77
[2020-06-20 00:45] VITALS: BP 187/95
[2020-06-20 04:13] VITALS: BP 156/78
--- NOTE | 2020-06-20 09:31 | EKG ---
[address] [place] [address] ELECTROCARDIOGRAM REPORT Name: ADAMS CAICEDO Room #: 170-8 ADM IN M.R.#: [id number] Admission: 06/19/20 Attend Phys: Todd Meneses MD Discharge: Date of : 62 Report #: [id number] [facility] ED Test Date: 2020-06-19 Test Time: 14:13:12 Pat Name: ADAMS CAICEDO Department: Room: 170 Gender: F [employer]: BETTYE : 1960 Requested By: Noah Duke Order Number: [id number] MD: Aj Barton Measurements Intervals [place] Rate: 79 P: 56 ME: 148 QRS: -2 QRSD: 72 T: 146 QT: 367 QTc: 421 Interpretive Statements Sinus rhythm Probable left atrial enlargement LVH with secondary repolarization abnormality Compared to ECG 06/15/2020 09:13:19 Early repolarization now present Sinus tachycardia no longer present Electronically Signed On 06-20-2020 9:31:18 VENDOR ANALYST by Aj Barton [email or web address] <ELECTRONICALLY SIGNED> By: Aj Barton MD 06/20/20 0931 1413 1413 Aj Barton MD /JON
[2020-06-20 14:30] VITALS: BP 172/85
[2020-06-20 16:01] VITALS: BP 166/99
[2020-06-20 19:31] VITALS: BP 123/71
--- NOTE | 2020-06-20 19:39 | NUR ---
[age] YEAR OLD FEMALE ADMITTED TO [email or web address] ROOM [address] URBANO. PT WAS BROUGHT INTO THE ER BY HER AFTER C/O SOA, WEAKNESS AND LOW O2 SAT. PT WAS JUST DISCHARGED LAST WEEEK. PT ALERT AND ORIENTED TIMES FOUR. BP ELEVATED OTHER VSS. 02 2L. PT C/O BACK PAIN SCHEDULED PAIN MEDICATION CONTROLLING PAIN WELL. PT UP TO REST ROOM WITH STANDBY ASSIST. PT AT BEDSIDE DURING ADMISSION. WILL CONTINUE TO MONITOR.
[2020-06-20 23:22] LABS: BE(vivo) 0.6 mmol/L (-2 to +3); HCO3 30.4 mmol/L (22.0-26.0); sO2 95.2 % (92.0-98.0)
[2020-06-20 23:26] LABS: pH 7.238 (7.360-7.450)
[2020-06-21] VITALS (9 sets, daily range): BP systolic 118–212; BP diastolic 51–104
--- NOTE | 2020-06-21 06:03 | NUR ---
ASSSUMED CARE PT AT 1900HRS. PT AOX4 AND LETS NEEDS BE KNOWN. FALL PRECAUTION IN PLACE. ASSESSMENT CHARTED. PT RAN SA ON TELE. AROUND 2300 RAPID REPONSE WAS CALLED DUE TO SOA AND TACHYPNEA. PLEASE SEE EVENT CHARTING. PT WAS LATER PLACED ON BIPAP. PHYSICIAN NOTIDIED. ORDERS RECEIVED AND STARTED. PT TRANSFERRED TO ROOM 209. REPORT GIVEN TO ONCOMING NURSE.
--- NOTE | 2020-06-21 07:21 | EKG ---
[address] [place] [address] ELECTROCARDIOGRAM REPORT Name: ADAMS CAICEDO Room #: 209-P ADM IN M.R.#: [id number] Admission: 06/19/20 Attend Phys: Todd Meneses MD Discharge: Date of : 62 Report #: [id number] [facility] Test Date: 2020-06-20 Test Time: 23:16:07 Pat Name: ADAMS CAICEDO Department: Room: 209 Gender: F Drying Supervisor: AISHWARYA : 1960 Requested By: Todd Meneses Order Number: [id number] MD: Deion Abernathy Measurements Intervals [place] Rate: 142 P: 72 RI: 150 QRS: 22 QRSD: 77 T: 177 QT: 273 QTc: 420 Interpretive Statements Sinus tachycardia Poor R wave progression Nonspecific ST and T wave abnormality Baseline wander in lead(s) II,III,aVF Compared to ECG 06/19/2020 14:13:12 Nonspecific change in the ST and T wave segments Electronically Signed On 06-21-2020 7:21:03 AIRDOX FITTER by Deion Abernathy [email or web address] <ELECTRONICALLY SIGNED> By: Deion Abernathy MD, [facility] 06/21/20 0721 2316 2316 Deion Abernathy MD, [facility] /EPI
--- NOTE | 2020-06-21 08:03 | NUR ---
RECEIVED REPORT FROM [facility] NURSE.PATIENT ON BIPAP WHEN TRANSFERRED TO ROOM 209.BP ELEVATED.LABETALOL GIVEN ORDERED.VOMITTED AND COMPLAIN OF HEADACHE TOO.VOIDS PER BEDPAN.MONITOR SHOWS SR,ST.POC CONTINUED.
[2020-06-21 08:10] LABS: BE(vivo) 10.3 mmol/L (-2 to +3); HCO3 36.4 mmol/L (22.0-26.0); PCO2 53.9 mmHg (35.0-45.0); PO2 100.9 mmHg (80.0-100.0); pH 7.447 (7.360-7.450); sO2 97.7 % (92.0-98.0)
[2020-06-21 08:29] LABS: HEMATOCRIT 42.5 % (37.0-47.0); MCH 31.9 pg (26.0-34.0); MCHC 33.1 g/dL (28.0-37.0); MCV 96.3 fL (80.0-100.0); RBC 4.41 mil/uL (4.20-5.00); WBC 16.3 thou/uL (4.0-11.0)
[2020-06-21 08:43] LABS: CALCIUM 8.9 mg/dL (8.5-10.1); CREATININE 1.5 mg/dL (0.6-1.0); POTASSIUM 3.3 mmol/L (3.5-5.1)
--- NOTE | 2020-06-21 18:30 | NUR ---
PT CARE ASSUMED AT 0700. ASSESSMENTS CHARTED. MEDICATIONS CHARTED. RAC IV. BEDPAN/TOILET. BIPAP ON S/B. 3 LPM NC. RENAL ANGIOGRAPHY 06/22/20. NPO EXCEPT MEDS AND SIPS OF LIQUID.
[2020-06-22] VITALS (12 sets, daily range): BP systolic 106–161; BP diastolic 49–89
--- NOTE | 2020-06-22 07:39 | NUR ---
NPO SINCE MIDNIGHT.UNABLE TO URINATE.INDWELLING CATH WAS PLACED ORDERED.URINE SAMPLE SENT.MONITOR SHOWS SR.POC CONTINUED.
[2020-06-22 07:40] LABS: AMP/METHAMP Negative (Negative); BARBITURATES Negative (Negative); BENZODIAZEPINES POSITIVE (Negative); COCAINE Negative (Negative); METHADONE Negative (Negative); OPIATES POSITIVE (Negative); PCP Negative (Negative)
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
--- NOTE | 2020-06-22 18:59 | NUR ---
PT CARE ASSUMED AT 0700. ASSESSMENTS CHARTED. MEDICATIONS CHARTED. RAC IV. SINUS RHYTHM. THAYER. ACHS. NPO UNTIL 1410. RT GROIN, MYNX. 2 STENTS LT RENAL ARTERY. HEMOSTASIS 1410 UNTIL 1710. BIPAP ON S/B. O2 3LPM NC. PT ASKS FOR PAIN MEDS OFTEN.
--- NOTE | 2020-06-23 04:07 | NUR ---
Assumed pt care at 1900. Pt is alert and oriented. No sign of distress noted. Pt is laying in bed resting. Continue to verbalize pain. Groin site in intact. Assessment completed and documented. Scheduled meds administered to pt. Tolerated PO intake. No acute events overnight. Continue to monitor. No further needs at this time.
[2020-06-23 04:48] VITALS: BP 117/55
[2020-06-23 05:36] LABS: CALCIUM 8.6 mg/dL (8.5-10.1); CREATININE 1.8 mg/dL (0.6-1.0); POTASSIUM 3.6 mmol/L (3.5-5.1)
[2020-06-23 06:30] LABS: HEMATOCRIT 30.1 % (37.0-47.0); MCH 32.7 pg (26.0-34.0); MCHC 34.1 g/dL (28.0-37.0); RBC 3.14 mil/uL (4.20-5.00); RDW 13.6 % (10.5-14.5); WBC 15.8 thou/uL (4.0-11.0)
[2020-06-23 06:31] LABS: HEMOGLOBIN 10.3 gm/dL (12.0-15.0)
[2020-06-23 07:23] VITALS: BP 111/53
[2020-06-23] MEDS ORDERED: ASPIR 8181 MG PO (08:42)
[2020-06-23] MEDS ORDERED: CLOPIDOGREL75 MG PO (08:42)
[2020-06-23] MEDS ORDERED: BYSTOLIC 5 MG5 M1 PO (08:42)
[2020-06-23 11:36] VITALS: BP 115/44
[2020-06-23 15:20] LABS: HEMATOCRIT 32.1 % (37.0-47.0); HEMOGLOBIN 10.4 gm/dL (12.0-15.0); MCH 31.6 pg (26.0-34.0); MCHC 32.5 g/dL (28.0-37.0); MCV 97.4 fL (80.0-100.0); RBC 3.29 mil/uL (4.20-5.00); RDW 14.2 % (10.5-14.5); WBC 15.6 thou/uL (4.0-11.0)
[2020-06-23 15:33] LABS: CALCIUM 8.5 mg/dL (8.5-10.1); CREATININE 1.9 mg/dL (0.6-1.0); POTASSIUM 3.7 mmol/L (3.5-5.1)
[2020-06-23 15:39] VITALS: BP 119/53
[2020-06-23 20:04] VITALS: BP 143/76
[2020-06-24] VITALS (7 sets, daily range): BP systolic 124–251; BP diastolic 62–155
--- NOTE | 2020-06-24 03:49 | NUR ---
Assumed pt care at 1900. Pt is alert and oriented. No sign of distress noted in pt. Pt verbalizes pain. Fall precaution in place. Assessment completed and documented. Scheduled meds administered to pt. No acute events overnight. Continue to monitor. No further needs at this time.
[2020-06-24 05:10] LABS: HEMATOCRIT 28.2 % (37.0-47.0); HEMOGLOBIN 9.3 gm/dL (12.0-15.0); MCH 31.8 pg (26.0-34.0); MCHC 32.9 g/dL (28.0-37.0); MCV 96.9 fL (80.0-100.0); RBC 2.91 mil/uL (4.20-5.00); RDW 14.1 % (10.5-14.5); WBC 11.5 thou/uL (4.0-11.0)
[2020-06-24 05:40] LABS: CALCIUM 8.2 mg/dL (8.5-10.1); CREATININE 1.7 mg/dL (0.6-1.0); POTASSIUM 3.4 mmol/L (3.5-5.1)
[2020-06-24] MEDS ORDERED: NIFEDIPINE ER30 M1 PO (08:10)
[2020-06-24] MEDS ORDERED: CLOPIDOGREL75 MG PO (08:10)
[2020-06-24] MEDS ORDERED: MIRALAX119 GM PO (11:29)
--- NOTE | 2020-06-24 14:27 | NUR ---
Pt dcing home today via family car. HH orders noted and pt agreeable. No preference. Referral and orders faxed to [facility] as they can start tomorrow and accepts ins plan. No other needs noted.
--- NOTE | 2020-06-24 15:51 | NUR ---
ASSUMED CARE AT SHIFT CHANGE, ALERT AND ORIENTED X4, PATIENT VSS ALL DAY UNTIL 1510, C/O SOB AND O2 SAT WAS 82-86%, RT AT BED SIDE, PATIENT WAS GIVEN Tx AND DR GUERRERO NOTIFIED. DISCHARGE CANCELLED AND DR URBANO NOTIFIED.
[2020-06-24 15:53] LABS: BE(vivo) 3.9 mmol/L (-2 to +3); HCO3 32.7 mmol/L (22.0-26.0); PO2 67.4 mmHg (80.0-100.0); sO2 90.7 % (92.0-98.0)
[2020-06-24 15:54] LABS: PCO2 69.1 mmHg (35.0-45.0); pH 7.293 (7.360-7.450)
[2020-06-24 17:30] LABS: BE(vivo) 4.7 mmol/L (-2 to +3); HCO3 30.9 mmol/L (22.0-26.0); PCO2 52.2 mmHg (35.0-45.0); PO2 89.4 mmHg (80.0-100.0); sO2 96.6 % (92.0-98.0)
[2020-06-25 03:36] VITALS: BP 152/74
--- NOTE | 2020-06-25 03:44 | NUR ---
Assumed pt care at 1900. Pt is alert and oriented. Pt still desats with activity. Upon going to the bedside commode, pt's oxygenation went to 81%. Nasal cannula in place. Fall precaution inh place. Continues to verbalize pain. Assessment completed and documented. Scheduled meds administered to pt. No acute events overnight. Continue to monitor. No further needs at this time
[2020-06-25 05:36] LABS: HEMATOCRIT 31.3 % (37.0-47.0); HEMOGLOBIN 10.7 gm/dL (12.0-15.0); MCH 32.8 pg (26.0-34.0); MCHC 34.2 g/dL (28.0-37.0); RBC 3.25 mil/uL (4.20-5.00); WBC 9.7 thou/uL (4.0-11.0)
[2020-06-25 05:37] LABS: CALCIUM 8.4 mg/dL (8.5-10.1); CREATININE 1.5 mg/dL (0.6-1.0); POTASSIUM 3.7 mmol/L (3.5-5.1)
--- NOTE | 2020-06-25 07:16 | EKG ---
[address] [employer] [address] ELECTROCARDIOGRAM REPORT Name: ADAMS CAICEDO Room #: 209- ADM IN M.R.#: [id number] Admission: 06/19/20 Attend Phys: Todd Meneses MD Discharge: Date of : 62 Report #: [id number] [facility] Test Date: 2020-06-24 Test Time: 16:41:00 Pat Name: ADAMS CAICEDO Department: Room: 209 P Gender: F Portable Track Line Marker: Charlie MYERS : 1960 Requested By: Darcy Cho Order Number: [id number] MD: Francisco Persaud Measurements Intervals [place] Rate: 106 P: 71 VT: 148 QRS: 20 QRSD: 77 T: 158 QT: 309 QTc: 411 Interpretive Statements Sinus tachycardia Left atrial enlargement Probable LVH with secondary repol abnrm Compared to ECG 06/20/2020 23:16:07 Atrial abnormality now present Poor R-wave progression no longer present ST (T wave) deviation no longer present Electronically Signed On 06-25-2020 7:16:08 LIGHTNING ROD ERECTOR by Francisco Persaud [email or web address] <ELECTRONICALLY SIGNED> By: Francisco Persaud MD, FAC 06/25/20 0716 1641 1641 Francisco Persaud MD, [facility] /EPI
[2020-06-25 08:05] VITALS: BP 143/61
[2020-06-25 11:30] VITALS: BP 154/78
[2020-06-25 13:55] VITALS: BP 137/64
--- NOTE | 2020-06-25 15:41 | NUR ---
DC held yesterday pm d/t asthma/panic attack and elev bp. Pt on 2liters of o2 and weaning down. [facility] and [facility] available to accept the case once dc confirmed. Possible weekend dc anticipated. Unit RN to notify Bert NUNO at dc [phone] and fax any new dc orders to [phone].
[2020-06-25 15:50] VITALS: BP 162/84
[2020-06-25 16:57] VITALS: BP 137/64
--- NOTE | 2020-06-25 18:27 | NUR ---
ASSESSMENT CHARTED - MEDS PER AUG -- NO CO'S OF NAUSEA - JANUARY DIET AND FLUIDS. PT WITH CHRONIC PAIN ISSUES - MEDS SCHEDULED. UP TO THE BATHROOM WITH STBY ASSIST. PT HOME THIS EVENING - ISTRUCTION RE HME MEDS/ CARE AND FOLLOW UP GIVEN TO PATIENT SPOUSE. - STATED UNDERSTANDING OF INSTRUCTION GIVEN. PT LEFT UNIT VIA WHEELCHAIR - HOME VIA PVT VEHICLE ACCOMAPNAIED BY SPOUSE. NO CO'S AT TIME OF D/C.
== END 2020-06-25 18:15 | disposition home health service (06) | DRG 853 ==
LOC: ER 12:44 → 2N 14:55 → 4W 14:55 → EROBS 14:55 → 4W 06-20 15:39 → 2N 06-21 03:09
PROVIDERS: Emergency Medicine; Internal Medicine Pulmonary Disease; Nurse Practitioner; Nurse Practitioner Adult Health; ADMIT Family Medicine; ATTEND Family Medicine
DX: A41.9 Sepsis, unspecified organism (principal); J18.9 Pneumonia, unspecified organism; J96.01 Acute respiratory failure with hypoxia; N17.9 Acute kidney failure, unspecified; I69.354 Hemiplegia and hemiparesis following cerebral infarction affecting left non-dominant side; J44.1 Chronic obstructive pulmonary disease with (acute) exacerbation; I13.0 Hypertensive heart and chronic kidney disease with heart failure and stage 1 through stage 4 chronic kidney disease, or unspecified chronic kidney disease; J44.0 Chronic obstructive pulmonary disease with (acute) lower respiratory infection; I16.0 Hypertensive urgency; Z20.822 Contact with and (suspected) exposure to COVID-19; J45.909 Unspecified asthma, uncomplicated; F41.9 Anxiety disorder, unspecified; F17.210 Nicotine dependence, cigarettes, uncomplicated; G89.29 Other chronic pain; I65.21 Occlusion and stenosis of right carotid artery; E78.5 Hyperlipidemia, unspecified; I50.9 Heart failure, unspecified; N18.9 Chronic kidney disease, unspecified; G43.909 Migraine, unspecified, not intractable, without status migrainosus; D64.9 Anemia, unspecified; I70.1 Atherosclerosis of renal artery; R33.9 Retention of urine, unspecified; Z99.3 Dependence on wheelchair; Z90.710 Acquired absence of both cervix and uterus; Z90.722 Acquired absence of ovaries, bilateral; Z88.6 Allergy status to analgesic agent; Z88.1 Allergy status to other antibiotic agents; Z88.8 Allergy status to other drugs, medicaments and biological substances; Z71.6 Tobacco abuse counseling; Z87.11 Personal history of peptic ulcer disease; Z82.49 Family history of ischemic heart disease and other diseases of the circulatory system; Z79.899 Other long term (current) drug therapy
CPT/HCPCS: 10045; 10081

== ENCOUNTER → 2020-07-09 | Outpatient (CLI) | payer OTHER ==
[~2020-07-09] MED LIST changes: +ASPIR 8181 MG PO; +BYSTOLIC 5 MG5 M1 PO; +MIRALAX119 GM PO; +NIFEDIPINE ER30 M1 PO
== END ==
LOC: ULTRA 09:45
PROVIDERS: ATTEND Family Medicine
DX: N26.1 Atrophy of kidney (terminal) (principal); I77.819 Aortic ectasia, unspecified site

== ENCOUNTER → 2020-07-30 | Outpatient (CLI) | payer OTHER | LOC: SJCVCIMAG 07:49 | PROVIDERS: ATTEND Nuclear Medicine Nuclear Cardiology | DX: I65.23 Occlusion and stenosis of bilateral carotid arteries (principal); I70.1 Atherosclerosis of renal artery; N28.0 Ischemia and infarction of kidney; I77.9 Disorder of arteries and arterioles, unspecified; N26.1 Atrophy of kidney (terminal); G89.4 Chronic pain syndrome; E78.5 Hyperlipidemia, unspecified; I12.9 Hypertensive chronic kidney disease with stage 1 through stage 4 chronic kidney disease, or unspecified chronic kidney disease; N18.9 Chronic kidney disease, unspecified; I25.2 Old myocardial infarction; F17.210 Nicotine dependence, cigarettes, uncomplicated; Z98.890 Other specified postprocedural states; Z95.828 Presence of other vascular implants and grafts; Z88.8 Allergy status to other drugs, medicaments and biological substances; Z79.82 Long term (current) use of aspirin; Z79.899 Other long term (current) drug therapy; Z82.49 Family history of ischemic heart disease and other diseases of the circulatory system ==

== ENCOUNTER → 2020-10-21 | Outpatient (CLI) | payer OTHER | LOC: SJCVC 13:15 | PROVIDERS: ATTEND Internal Medicine | DX: I12.9 Hypertensive chronic kidney disease with stage 1 through stage 4 chronic kidney disease, or unspecified chronic kidney disease (principal); N18.9 Chronic kidney disease, unspecified; I70.1 Atherosclerosis of renal artery; E78.00 Pure hypercholesterolemia, unspecified; R53.82 Chronic fatigue, unspecified; G89.29 Other chronic pain; R73.9 Hyperglycemia, unspecified; G43.909 Migraine, unspecified, not intractable, without status migrainosus; F17.210 Nicotine dependence, cigarettes, uncomplicated; F12.90 Cannabis use, unspecified, uncomplicated; Z79.82 Long term (current) use of aspirin; Z79.899 Other long term (current) drug therapy; Z88.8 Allergy status to other drugs, medicaments and biological substances ==

== ENCOUNTER 2020-10-29 21:15 | Emergency (ER) | payer OTHER ==
[~2020-10-29] VITALS: Ht 152.4 cm; Wt 48.1 kg
[~2020-10-29 21:15] MED LIST changes: +VALIUM2 MG PO; -VALIUM5 MG PO
[2020-10-29 22:18] LABS: URINE BILIRUBIN NEGATIVE (Negative); URINE BLOOD TRACE (Negative); URINE CLARITY CLEAR; URINE COLOR YELLOW; URINE GLUCOSE-RANDOM* NEGATIVE (Negative); URINE KETONES NEGATIVE (Negative); URINE LEUKOCYTES-REFLEX NEGATIVE (Negative); URINE NITRITE-REFLEX NEGATIVE (Negative); URINE PROTEIN (DIPSTICK) 3+ (Negative); URINE SPECIFIC GRAVITY >= 1.030 (1.005-1.035); URINE UROBILINOGEN 0.2 E.U./dl (0.2-1.0)
[2020-10-29 22:40] LABS: ABSOLUTE NEUTROPHILS 5.4 thou/uL (1.4-8.2); BASOPHILS 0.8 % (0.0-2.0); EOSINOPHILS 0.7 % (0.0-3.0); HEMATOCRIT 41.9 % (37.0-47.0); HEMOGLOBIN 14.4 gm/dL (12.0-15.0); LYMPHOCYTES 36.1 % (24.0-44.0); MCH 30.3 pg (26.0-34.0); MCHC 34.4 g/dL (28.0-37.0); MONOCYTES 6.5 % (1.0-8.0); PLATELET COUNT 265 thou/uL (150-400); POLYS 55.9 % (36.0-66.0); RBC 4.76 mil/uL (4.20-5.00); RDW 16.2 % (10.5-14.5); WBC 9.6 thou/uL (4.0-11.0)
[2020-10-29 22:57] LABS: BACTERIA-REFLEX 1-9 Few /HPF (None Seen); CRYSTALS None Seen /LPF (None Seen); HYALINE CASTS 0-3 Few /LPF (None Seen); MUCUS 0-3 Light strn/LPF (None Seen); SQUAMOUS >10 Many /LPF (0-3); URINE RBC 1-2 Rare /HPF (NONE SEEN); URINE WBC-REFLEX 0-5 Rare /HPF (0-5)
[2020-10-29 23:00] LABS: ANION GAP 9 mmol/L (7-16); BUN 15 mg/dL (7-18); CALCIUM 8.8 mg/dL (8.5-10.1); CHLORIDE 99 mmol/L (98-107); CO2 27 mmol/L (21-32); CREATININE 1.3 mg/dL (0.6-1.0); GLUCOSE 108 mg/dL (74-106); POTASSIUM 3.1 mmol/L (3.5-5.1); SODIUM 135 mmol/L (136-145)
[2020-10-29 23:10] LABS: SGOT 16 U/L (15-37); SGPT 12 U/L (30-65); TOTAL BILIRUBIN 0.4 mg/dL (0.2-1.0); TOTAL PROTEIN 6.5 g/dL (6.4-8.2); TROPONIN-I <0.06 ng/mL (<0.06)
[2020-10-29] MEDS ORDERED: DIAZEPAM 5 MG5 M1 PO (23:13)
[2020-10-29] MEDS ORDERED: DOXYCYCLINE HY100 M3 PO (23:14)
[2020-10-29] MEDS ORDERED: DESYREL150 MG PO (23:14)
[2020-10-29] MEDS ORDERED: TIZANIDINE HCL4 M2 PO (23:14)
[2020-10-29] MEDS ORDERED: MOVANTIK12.5 MG PO (23:32)
[2020-10-30 05:45] VITALS: BP 160/63
--- NOTE | 2020-11-01 08:24 | EKG ---
[place] [address] [facility] [place] [address] ELECTROCARDIOGRAM REPORT Name: ADAMS CAICEDO [id number] Admission: 10/29/20 Attend Phys: Discharge: 10/30/20 Date of : 62 Report #: [id number] [facility] ED Test Date: 2020-10-29 Test Time: 22:56:08 Pat Name: ADAMS CAICEDO Department: Room: Gender: F Cord Cutter: jose : 1960 Requested By: Shane Small Order Number: [id number] MD: Deion Abernathy Measurements Intervals [place] Rate: 65 P: 72 WV: 149 QRS: 15 QRSD: 79 T: 210 QT: 419 QTc: 436 Interpretive Statements Sinus rhythm Nonspecific ST and T wave abnormality Anterior Q waves, possibly due to LVH Compared to ECG 06/24/2020 16:41:00 Sinus tachycardia no longer present Electronically Signed On 11-01-2020 8:24:26 CDT by Deion Abernathy [email or web address] <ELECTRONICALLY SIGNED> By: Deion Abernathy MD, [facility] 11/01/20823 55 Deion Abernathy MD, [facility] /EPI
== END 2020-10-30 06:09 | disposition still patient (30) ==
LOC: ER 21:15
PROVIDERS: Emergency Medicine
DX: I16.1 Hypertensive emergency (principal); G44.201 Tension-type headache, unspecified, intractable; H53.142 Visual discomfort, left eye; I25.2 Old myocardial infarction; J44.9 Chronic obstructive pulmonary disease, unspecified; G43.909 Migraine, unspecified, not intractable, without status migrainosus; F41.9 Anxiety disorder, unspecified; F17.210 Nicotine dependence, cigarettes, uncomplicated; Z98.890 Other specified postprocedural states; Z95.828 Presence of other vascular implants and grafts; Z98.51 Tubal ligation status; Z90.711 Acquired absence of uterus with remaining cervical stump; Z86.73 Personal history of transient ischemic attack (TIA), and cerebral infarction without residual deficits; Z88.8 Allergy status to other drugs, medicaments and biological substances; Z88.1 Allergy status to other antibiotic agents; Z79.899 Other long term (current) drug therapy; Z79.82 Long term (current) use of aspirin

== ENCOUNTER 2020-11-04 11:03 | Inpatient (IN) | payer OTHER ==
[~2020-11-04] VITALS: Ht 152.4 cm; Wt 45.4 kg
[~2020-11-04 11:03] MED LIST changes: +DIAZEPAM 5 MG5 M1 PO; +DOXYCYCLINE HY100 M3 PO; +MOVANTIK12.5 MG PO; +TIZANIDINE HCL4 M2 PO
[2020-11-04 11:09] VITALS: BP 227/134
[2020-11-04] MEDS ORDERED: PROCARDIA10 MG PO (11:17)
[2020-11-04 13:23] LABS: ABSOLUTE NEUTROPHILS 8.2 thou/uL (1.4-8.2); BASOPHILS 0.5 % (0.0-2.0); EOSINOPHILS 1.5 % (0.0-3.0); HEMATOCRIT 42.8 % (37.0-47.0); HEMOGLOBIN 14.5 gm/dL (12.0-15.0); LYMPHOCYTES 20.7 % (24.0-44.0); MCH 30.2 pg (26.0-34.0); MCHC 33.9 g/dL (28.0-37.0); MCV 89.1 fL (80.0-100.0); PLATELET COUNT 258 thou/uL (150-400); POLYS 70.3 % (36.0-66.0); RDW 16.1 % (10.5-14.5); WBC 11.6 thou/uL (4.0-11.0)
[2020-11-04 13:39] LABS: ANION GAP 4 mmol/L (7-16); BUN 16 mg/dL (7-18); CALCIUM 8.5 mg/dL (8.5-10.1); CHLORIDE 98 mmol/L (98-107); CO2 31 mmol/L (21-32); CREATININE 1.2 mg/dL (0.6-1.0); GLUCOSE 193 mg/dL (74-106); SODIUM 133 mmol/L (136-145); TROPONIN-I <0.06 ng/mL (<0.06)
[2020-11-04 13:56] LABS: POTASSIUM 2.7 mmol/L (3.5-5.1)
[2020-11-04 20:19] VITALS: BP 136/62
[2020-11-04 21:23] VITALS: BP 148/60
[2020-11-04 21:30] VITALS: BP 148/60
[2020-11-05] VITALS (10 sets, daily range): BP systolic 99–149; BP diastolic 44–75
--- NOTE | 2020-11-05 04:41 | NUR ---
PT ADMITTED FROM HOME, ALERT AND ORIENTEDX4, SR/ SB NOTED ON THE MONITOR, BP IN THE 140S SYTOLIC, CARDENE GTT STILL RUNNING, TITRATED PER PROTOCOL BP BETTER, ADMISSION HX, EDUCATION AND ASSESSMENTS COMPLETED AND CHARTED, MEDS GIVEN PER MAR, NO NEEDS AT THIS TIME, WILL CONTINUE TO MONITOR BP AND FOLLOW POC
[2020-11-05 07:02] LABS: CALCIUM 8.5 mg/dL (8.5-10.1); CREATININE 1.3 mg/dL (0.6-1.0); POTASSIUM 3.2 mmol/L (3.5-5.1)
--- NOTE | 2020-11-05 08:19 | EKG ---
[address] [place] [address] ELECTROCARDIOGRAM REPORT Name: ADAMS CAICEDO Room #: 210-P ADM IN M.R.#: [id number] Admission: 11/04/20 Attend Phys: Todd Meneses MD Discharge: Date of : 62 Report #: [id number] [facility] ED Test Date: 2020-11-04 Test Time: 11:47:49 Pat Name: ADAMS CAICEDO Department: Room: 210 Gender: F Global Chief Creative Officer: JOSE : 1960 Requested By: Clement Barnett Order Number: [id number] MD: Francisco Persaud Measurements Intervals [place] Rate: 87 P: 75 HI: 182 QRS: 10 QRSD: 80 T: QT: 374 QTc: 450 Interpretive Statements Sinus rhythm Consider right atrial enlargement Probable LVH with secondary repol abnrm Inferior infarct, age indeterminate Compared to ECG 10/29/2020 22:56:08 Myocardial infarct finding now present ST (T wave) deviation no longer present Q waves no longer present Electronically Signed On 11-05-2020 8:19:34 CDT by Francisco Persaud [email or web address] <ELECTRONICALLY SIGNED> By: Francisco Persaud MD, FAC 11/05/20 0819 1147 1147 Francisco Persaud MD, [facility] /EPI
--- NOTE | 2020-11-05 09:43 | NUR ---
ASSESSMENT: CM REVIEWED CHART AND MET WITH PATIENT AND HER . PT IS ALERT AND ORIENTED X4. PT WAS ADMITTED DUE TO HIGH BLOOD PRESSURE, HEADACHE AND COMPLAINING OF VISUAL DISTURBANCE. PT WAS RECENTLY RECOMMENDED TO FOLLOW UP WITH OPTHAMOLOGIST. PT LIVES IN A HOUSE WITH HER . THEY REPORT ONCE WALKING IN THE HOME THERE IS ABOUT 14 STEPS WITH HANDRAILS FROM THE BASEMENT TO THE MAIN LEVEL. PT REPORTS HAVING A WALKER, WHEELCHAIR, AND CANE AND DEPENDING ON HOW SHE FEELS DEPENDS ON WHAT SHE USES OR NEEDS. PT REPORTS SHE HAS HAD [facility] IN THE PAST IN JUNE. CM DISCUSSED ROLE. PT DOES NOT ANTICIPATE HAVING ANY NEEDS AT DISCHARGE AND DOES NOT FEEL SHE WILL NEED HH AGAIN. PT SHOULD DISCHARGE HOME WITH NO NEEDS AT TIME OF DISCHARGE.
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
--- NOTE | 2020-11-05 17:14 | NUR ---
PT CARE ASSUMED AT 0700. ASSESSMENTS CHARTED. MEDICATIONS CHARTED. RW IV. ANIVAL IV. SINUS BRADYCARDIA. BSC. CHRONIC BACK PAIN. OXYCODONE Q4PRN. CARDIPINE GTT 2.5.
--- NOTE | 2020-11-05 18:55 | NUR ---
PT CARE ASSUMED AT 1530. EXTENDED BEDREST FROM CV HOLDING. PT TO BE DISCHARGED AT 1800. DISCHARGE INSTRUCTIONS GIVEN TO THE PATIENT ALONG WITH DR ROBERTS'S INFORMATION WITH INSTRUCTIONS TO CALL HIS OFFICE WITH ANY QUESTIONS.
[2020-11-06 00:05] VITALS: BP 130/67
--- NOTE | 2020-11-06 03:30 | NUR ---
SLEPT MOST OF SHIFT. ASSIST UP TO BATHROOM OR COMODE NEEDED. WALKED IN [place] WITH LAST PM. PAIN, MUSCLE RELAXANTS AND ANXIETY MEDS GIVEN NEEDED. PATIENT DROWSY MUST AROUSABLE. WORKING ON GOALS AND PLAN OF CARE FOR NOC. CONTINUE TO MONITOR VS CLOSELY. CARDENE GTT OFF THIS SHIFT. PROGRESSING SLOWLY TOWARDS DISCHARGE GOALS. CONTINUE TO ASSES MARCOS.
[2020-11-06 05:00] VITALS: BP 151/75
[2020-11-06 07:15] VITALS: BP 117/62
[2020-11-06 11:10] VITALS: BP 137/62
[2020-11-06] MEDS ORDERED: BYSTOLIC10 MG PO (11:15)
[2020-11-06] MEDS ORDERED: SPIRONOLACTONE25 M1 PO (11:16)
[2020-11-06] MEDS ORDERED: PROCARDIA XL60 MG PO (11:16)
[2020-11-06] MEDS ORDERED: AMITRIPTYLINE H50 M2 PO (11:17)
[2020-11-06 12:46] VITALS: BP 137/62
--- NOTE | 2020-11-06 13:08 | NUR ---
PT IS AXOX4, PLEASANT; C/O SOME PAIN RELATED TO MIGRAINE, ANXIETY, AND MUSCLE SPASMS. VSS, AFEBRILE, SR ON MONITOR. CARDIOLOGY CONSULTED, DR WALKER CONSULTED. PT TO D/C HOME. PT SPOUSE AT THE BEDSIDE. DISCHARGE EDUCATION CONDUCTED. RX MEDICATIONS AND FOLLOW UP APPT EXPLAINED. PT AND PT SPOUSE COMMUNICATED UNDERSTANDING. PT D/C WITH SPOUSE IN PERSONAL VEHICLE. NO CONCERNS AT THIS TIME.
[2020-12-15] MEDS ORDERED: VENTOLIN HFA INH8 GM INH (14:30)
[2020-12-15] MEDS ORDERED: LIPITOR40 MG PO (14:56)
[2020-12-15] MEDS ORDERED: AMITRIPTYLINE H25 M3 PO (14:56)
[2020-12-15] MEDS ORDERED: PLAVIX 75 MG TA75 MG PO (14:58)
[2020-12-15] MEDS ORDERED: DIAZEPAM 5 MG5 M1 PO (14:59)
[2020-12-15] MEDS ORDERED: PROCARDIA XL60 MG PO (15:00)
[2020-12-15] MEDS ORDERED: BYSTOLIC10 MG PO (15:00)
[2020-12-15] MEDS ORDERED: DESYREL300 MG PO (15:01)
== END 2020-11-06 13:11 | disposition home or self-care (01) | DRG 304 ==
LOC: ER 11:03 → EROBS 14:27 → 2N 14:27
PROVIDERS: Nurse Practitioner; ADMIT Family Medicine; ATTEND Family Medicine
DX: I16.0 Hypertensive urgency (principal); R65.11 Systemic inflammatory response syndrome (SIRS) of non-infectious origin with acute organ dysfunction; N17.9 Acute kidney failure, unspecified; I69.354 Hemiplegia and hemiparesis following cerebral infarction affecting left non-dominant side; I13.0 Hypertensive heart and chronic kidney disease with heart failure and stage 1 through stage 4 chronic kidney disease, or unspecified chronic kidney disease; J44.9 Chronic obstructive pulmonary disease, unspecified; G43.909 Migraine, unspecified, not intractable, without status migrainosus; F41.9 Anxiety disorder, unspecified; G35 Multiple sclerosis; E87.6 Hypokalemia; E83.42 Hypomagnesemia; I50.9 Heart failure, unspecified; N18.9 Chronic kidney disease, unspecified; E78.5 Hyperlipidemia, unspecified; G89.29 Other chronic pain; I70.1 Atherosclerosis of renal artery; F43.10 Post-traumatic stress disorder, unspecified; Z98.1 Arthrodesis status; Z91.14 Patient's other noncompliance with medication regimen; Z98.891 History of uterine scar from previous surgery; Z90.710 Acquired absence of both cervix and uterus; Z79.01 Long term (current) use of anticoagulants; Z79.899 Other long term (current) drug therapy; Z88.1 Allergy status to other antibiotic agents; Z88.8 Allergy status to other drugs, medicaments and biological substances
CPT/HCPCS: 10797

== ENCOUNTER 2020-12-17 06:55 | Inpatient (IN) | payer OTHER ==
[~2020-12-17] VITALS: Ht 154.9 cm; Wt 50.3 kg
[2020-12-17] VITALS (22 sets, daily range): BP systolic 120–198; BP diastolic 39–80
--- NOTE | ~2020-12-17 | O ---
[facility] [place] [address] OPERATIVE REPORT Name: ADAMS CAICEDO Room #: 150-3 [facility] M.R.#: [id number] Admission: 12/17/20 Attend Phys: Dario Lara MD Discharge: Date of : 62 Report #: [id number] THIS REPORT FOR: cc: Todd Meneses MD, Neal A. MD [place],Dario Flores MD ~ DOC #: [id number] Dario Lara MD DATE OF SERVICE: 12/17/2020 PREOPERATIVE DIAGNOSES: 1. Left nasal septal mucosal mass. 2. Septal deformity. POSTOPERATIVE DIAGNOSES: 1. Left nasal septal mucosal mass. 2. Septal deformity. PROCEDURES: Excision of left nasal septal mass and nasal septoplasty. SURGEON: Dario Lara MD ANESTHESIA: General endotracheal. INDICATIONS: See H and P. FINDINGS: Large spur involving the inferior portion of the vomer anteriorly as well as the maxillary crest was noted. Has a large botryoidal/wart like mass involving the left anterior nasal septum back about to the mcc point of the septum. TECHNIQUE: After obtaining consent, she was brought to the operating suite, appropriate time out was performed. General oral endotracheal anesthesia was obtained. After obtaining an adequate blood pressure level, the nose was prepped with a 0.05% Afrin on cottonoids. I then injected 5 mL of 1% Xylocaine 1:100,000 epinephrine each side to the septum. Initially, I took multiple biopsies of the left septal mass for frozen section. Frozen section returned as a papillomatous mass without any obvious signs of malignancy. At that point, I proceeded to perform a septoplasty making a right-sided hemitransfixion incision and raising a mucosal flap off the quadrangular cartilage in the anterior portion of the vomer on the left side. It should be noted that the septal portion of the mucosal flap did not show any erosion or lesions present. I harvested the inferior portion of the quadrangular cartilage, leaving enough anteriorly for tip support. There was a generous portion left superiorly. The bony cartilaginous junction was disarticulated and I elevated mucosal flap off the right side, allowed full exposure of the inferior portion of the [address] [address] OPERATIVE REPORT Name: ADAMS CAICEDO Room #: 150-3 [facility] M.R.#: [id number] Admission: 12/17/20 Attend Phys: Dario Lara MD Discharge: Date of : 62 Report #: [id number] quadrangular cartilage, maxillary crest and the vomer spur. I then removed the deviated quadrangular cartilage inferiorly including the portion off the maxillary crest and then remove the vomer spur in a similar fashion. During removal, there was a horizontal mucosal tear on the left side only and the inferior portion, this was posterior to where the septal mass was located. After removal, a small piece of a previously harvested cartilage was trimmed, morselized and placed back inferiorly and posteriorly. The hemitransfixion incision was closed with 4-0 chromic suture. I then used the 2.9 microdebrider blade to remove the septal mass down to what appeared to be normal septal mucosa. There was really minimal oozing noted after removal. This also improved her airway substantially. I then used a suction cautery on a setting of 15-20 coagulation to coagulate the septal mucosa as well as the small portion of the septal flap. Upon completion, there was no active bleeding noted. I then liberally applied Cam powder to the entire left nasal cavity, especially over the area of the nasal mass. Simple splints were then designed and fashioned by myself, placed on each side of the septum and secured with 3-0 Prolene suture. I then placed a single Merogel, trifolded inferiorly to protect the septal mucosal tear flap. There was no active bleeding noted at this time. The nasopharynx was suctioned free of secretions. She was turned over to anesthesia where she was lightened extubated and taken to recovery room in stable condition. Estimated blood loss was 15 mL MD MARIANN Marin/JANEEN/ZOHAIB By: 0909 [id number] Dario Lara MD /nt
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
[~2020-12-17 06:55] MED LIST changes: +AMITRIPTYLINE H25 M3 PO; +AMITRIPTYLINE H50 M2 PO; +BYSTOLIC10 MG PO; +DESYREL300 MG PO; +PLAVIX 75 MG TA75 MG PO; +PROCARDIA XL60 MG PO; +PROCARDIA10 MG PO; +SPIRONOLACTONE25 M1 PO; +VENTOLIN HFA INH8 GM INH
--- NOTE | 2020-12-17 17:59 | NUR ---
PT ADMIT TO ICU AT APPROX 1600 ON CARDENE GTT. PT AFEBRILE, ADEQUATE UOP, NO BM, APPROPRIATE APPETITE. DRIP BANDAGE TAPED UNDER NOSE, SCANT BLEEDING NOTED. HOME MEDICATIONS HAVE BEEN DISSCUSED WITH DR URBANO AND PHARMACIST. PT AND HAVE BEEN THOUROUGHLY UPDATED AND EDUCATED ON PT CONDITION AND POC. PLAN TO DC HOME TOMORROW ONCE CARDENE GTT OFF AND BP CONTROLLED WITH PO MEDS.
[2020-12-18] VITALS (25 sets, daily range): BP systolic 129–169; BP diastolic 51–77
[2020-12-18 10:37] LABS: HEMATOCRIT 31.4 % (37.0-47.0); HEMOGLOBIN 10.6 gm/dL (12.0-15.0); MCH 31.4 pg (26.0-34.0); MCHC 33.8 g/dL (28.0-37.0); RBC 3.37 mil/uL (4.20-5.00); RDW 15.6 % (10.5-14.5); WBC 15.4 thou/uL (4.0-11.0)
[2020-12-18 10:49] LABS: CALCIUM 8.1 mg/dL (8.5-10.1); CREATININE 1.2 mg/dL (0.6-1.0); MAGNESIUM 1.7 mg/dL (1.8-2.4); POTASSIUM 3.4 mmol/L (3.5-5.1)
[2020-12-18] MEDS ORDERED: BYSTOLIC10 MG PO (16:09)
[2020-12-18] MEDS ORDERED: OXYCODONE HCL 55 MG PO (16:09)
--- NOTE | 2020-12-18 16:49 | NUR ---
PT ALERT AND ORIENTED. BP MEDS GIVEN ORDERED. PRN PAIN MED GIVEN WITH PARTIAL RELIEF. PT SEEN BY DR. AGUILAR AND DR. XIONG. ORDERS GIVEN TO DISCHARGE PT TO HOME. DISCHARGE INSTRUCTIONS GIVEN TO PT AND THE . THEY BOTH VERBERLISED UNDERSTANDING. PT LEFT THE FACILITY WITH ALL HER BELONGINGS ACCOMPANIED BY THE .
--- NOTE | 2020-12-22 15:08 | PATH ---
[facility] [place] [address] PATHOLOGY RPT PROCEDURE Name: DEBRA CAICEDO Room #: 237-P [facility] IN M.R.#: [id number] Admission: 12/17/20 Date of : 62 Discharge: 12/18/20 Report #: [id number] Path Case #: [id number] [facility] Accession Number: [id number] . 01 Material submitted: . PART A: nasal cavity - LEFT NASAL SEPTUM MASS FS. Modifiers: left PART B: nasal cavity - LEFT NASAL SEPTUM MASS 6M. Modifiers: left, 6M . 01 Clinical history: . DEVIATED NASAL SEPTUM . 02 Frozen section diagnosis: . FROZEN SECTION DIAGNOSIS: (Rajwinder Fernandez M.D.) . FSA1. Left nasal septum mass, biopsy: - Exophytic papillomatous lesion with acute inflammation. - Definitive invasion not identified on FS slide. - Interpretation limited by frozen section artifact. . These findings are discussed with Dr. Dario Lara in OR2 at [facility] and a written report is placed in the patient's chart. . Frozen section performed at [facility], [address] [place] [address]. . . FROZEN SECTION GROSS DESRIPTION: The specimen is received fresh from the OR labeled with the patient's name, and "left nasal septum mass" consists of multiple red-price fragments of tissue measuring in aggregate 0.8 x 0.2 x 0.2 cm. Submitted entirely for frozen section as FSA1. This is subsequently submitted for permanent sections as A1. (IUV/db; 12/17/2020) IZV/LBQ . 02 Diagnosis: A. 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 - Mild to moderate acute inflammation present within the background. - Negative for invasion or malignancy. . B. 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 - Mild to moderate acute inflammation present within the background. - Negative for invasion or malignancy. (IUV:serina; 12/21/2020) S 12/21/[address] [address] PATHOLOGY RPT PROCEDURE Name: DEBRA CAICEDO Room #: 237-P DIS IN M.R.#: [id number] Admission: 12/17/20 Date of : 62 Discharge: 12/18/20 Report #: [id number] Path Case #: [id number] . 02 Comment: Dr. Kain Arvizu has seen sales representative sales manager slides of this case and concurs with my diagnosis. (IUV:serina; 12/21/2020) . 02 Electronically signed: . Rajwinder Fernandez MD, Pathologist NPI- [id number] . 01 Gross description: . A. SEE FROZEN SECTION GROSS DESCRIPTION. . B. Received in formalin labeled "Joselito, Debra and left nasal septal mass". Received are multiple hemorrhagic pink-price tissue fragment measuring in aggregate 4.5 x 3.0 x 0.8 cm. The specimen is entirely submitted in cassette B1.([facility]; 12/17/2020) . [facility] 12/21/2020 1154 Local . 02 Pathologist provided ICD-10: D14.0, J34.89 . 02 CPT . 596288, 717707, 736947 Specimen Comment: A courtesy copy of this report has been sent to [phone] Specimen Comment: Report sent to Performed at: [address], [place] [id number] MD Ben Christianson MD Phone: [phone] Performed at: [address] [id number] MD Rajwinder Fernandez MD Phone: [phone]
== END 2020-12-18 16:48 | disposition home or self-care (01) | DRG 144 ==
LOC: OR 06:55 → TBA 06:56 → OR 09:04 → ICU 16:07 → OR 16:08 → ICU 16:08
PROVIDERS: Internal Medicine; ADMIT Family Medicine; ATTEND Otolaryngology
DX: J34.2 Deviated nasal septum (principal); I69.354 Hemiplegia and hemiparesis following cerebral infarction affecting left non-dominant side; I13.0 Hypertensive heart and chronic kidney disease with heart failure and stage 1 through stage 4 chronic kidney disease, or unspecified chronic kidney disease; I16.0 Hypertensive urgency; N18.9 Chronic kidney disease, unspecified; I73.9 Peripheral vascular disease, unspecified; F32.9 Major depressive disorder, single episode, unspecified; J45.909 Unspecified asthma, uncomplicated; E78.5 Hyperlipidemia, unspecified; I50.9 Heart failure, unspecified; G43.909 Migraine, unspecified, not intractable, without status migrainosus; I65.21 Occlusion and stenosis of right carotid artery; I70.1 Atherosclerosis of renal artery; F12.90 Cannabis use, unspecified, uncomplicated; G89.4 Chronic pain syndrome; Z88.1 Allergy status to other antibiotic agents; Z88.6 Allergy status to analgesic agent; Z88.8 Allergy status to other drugs, medicaments and biological substances; Z90.710 Acquired absence of both cervix and uterus; I25.2 Old myocardial infarction; Z71.6 Tobacco abuse counseling; Z91.14 Patient's other noncompliance with medication regimen
CPT/HCPCS: 10078; 50010; 50101; 50386; 50398; 51316; 51634; 52287; 53635; 56526; 56528; 62110; 62900; 64037; 70005

== ENCOUNTER 2020-12-25 12:10 | Inpatient (IN) | payer OTHER ==
[~2020-12-25] VITALS: Ht 154.9 cm; Wt 54.1 kg
[~2020-12-25 12:10] MED LIST changes: +OXYCODONE HCL 55 MG PO
[2020-12-25 12:13] VITALS: BP 180/68
[2020-12-25] MEDS ORDERED: BYSTOLIC20 MG PO (12:17)
[2020-12-25 13:00] LABS: ABSOLUTE NEUTROPHILS 4.2 thou/uL (1.4-8.2); BASOPHILS 1.2 % (0.0-2.0); HEMATOCRIT 35.3 % (37.0-47.0); HEMOGLOBIN 11.7 gm/dL (12.0-15.0); MCH 30.8 pg (26.0-34.0); MCHC 33.2 g/dL (28.0-37.0); MCV 92.6 fL (80.0-100.0); MONOCYTES 10.2 % (1.0-8.0); PLATELET COUNT 368 thou/uL (150-400); POLYS 58.6 % (36.0-66.0); RBC 3.81 mil/uL (4.20-5.00); RDW 15.3 % (10.5-14.5); WBC 7.2 thou/uL (4.0-11.0)
[2020-12-25 13:09] LABS: ANION GAP 9 mmol/L (7-16); BUN 10 mg/dL (7-18); CALCIUM 8.4 mg/dL (8.5-10.1); CHLORIDE 105 mmol/L (98-107); CO2 29 mmol/L (21-32); CREATININE 1.5 mg/dL (0.6-1.0); GLUCOSE 118 mg/dL (74-106); POTASSIUM 3.8 mmol/L (3.5-5.1); SODIUM 143 mmol/L (136-145)
[2020-12-25 13:26] LABS: ALBUMIN 2.4 g/dL (3.4-5.0); SGOT 17 U/L (15-37); SGPT 16 U/L (14-59); TOTAL BILIRUBIN 0.1 mg/dL (0.2-1.0); TOTAL PROTEIN 6.4 g/dL (6.4-8.2); TROPONIN-I <0.06 ng/mL (<0.06)
[2020-12-25 15:52] LABS: BE(vivo) 2.9 mmol/L (-2 to +3); HCO3 28.1 mmol/L (22.0-26.0); PCO2 45.7 mmHg (35.0-45.0); PO2 100.1 mmHg (80.0-100.0); pH 7.407 (7.360-7.450); sO2 97.6 % (92.0-98.0)
[2020-12-26] VITALS (8 sets, daily range): BP systolic 158–195; BP diastolic 68–91
--- NOTE | 2020-12-26 05:21 | NUR ---
Arrived from ER around 0120. Tolerating room air well with O2 sat in the mid to upper 90's. BP elevated , BP med given in ER prior to sending pt. on the floor. Ambulated to bathroom and voided. Slept some.
[2020-12-26 05:39] LABS: HEMATOCRIT 37.6 % (37.0-47.0); HEMOGLOBIN 12.7 gm/dL (12.0-15.0); MCH 30.8 pg (26.0-34.0); MCHC 33.8 g/dL (28.0-37.0); MCV 91.3 fL (80.0-100.0); RBC 4.11 mil/uL (4.20-5.00); RDW 15.3 % (10.5-14.5); WBC 11.3 thou/uL (4.0-11.0)
[2020-12-26 06:06] LABS: CALCIUM 8.7 mg/dL (8.5-10.1); CREATININE 1.4 mg/dL (0.6-1.0); POTASSIUM 3.1 mmol/L (3.5-5.1)
--- NOTE | 2020-12-26 11:01 | EKG ---
[place] [address] [facility] [place] [address] ELECTROCARDIOGRAM REPORT Name: ADAMS CAICEDO Room #: 360-P ADM IN M.R.#: [id number] Admission: 12/25/20 Attend Phys: Todd Meneses MD Discharge: Date of : 62 Report #: [id number] [facility] ED Test Date: 2020-12-25 Test Time: 14:40:33 Pat Name: ADAMS CAICEDO Department: Room: 360 Gender: F Certified Dental Assistant: RAMY : 1960 Requested By: Tai Rodriguez Order Number: [id number] MD: Ryan Mcelroy Measurements Intervals [place] Rate: 112 P: 72 VA: 135 QRS: 24 QRSD: 74 T: -66 QT: 265 QTc: 362 Interpretive Statements Sinus tachycardia Left atrial enlargement Probable left ventricular hypertrophy ST segment abnormalities in the lateral leads, rule out ischemia Compared to ECG 12/25/2020 12:45:34 T-wave abnormality now present Possible ischemia now present Sinus rhythm no longer present Electronically Signed On 12-26-2020 11:01:00 CDT by Ryan Mcelroy [email or web address] <ELECTRONICALLY SIGNED> By: Ryan Mcelroy MD 12/26/20 1101 1440 1440 Ryan Mcelroy MD /[facility]
--- NOTE | 2020-12-26 11:01 | EKG ---
[address] [place] [address] ELECTROCARDIOGRAM REPORT Name: ADAMS CAICEDO Room #: 360- ADM IN M.R.#: [id number] Admission: 12/25/20 Attend Phys: Todd Meneses MD Discharge: Date of : 62 Report #: [id number] [facility] ED Test Date: 2020-12-25 Test Time: 12:45:34 Pat Name: ADAMS CAICEDO Department: Room: 360 Gender: F Mycologist: argelia : 1960 Requested By: Tai Rodriguez Order Number: [id number] MD: Ryan Mcelroy Measurements Intervals [place] Rate: 68 P: 52 MO: 147 QRS: 7 QRSD: 77 T: 56 QT: 407 QTc: 433 Interpretive Statements Sinus rhythm Left atrial enlargement Probable LVH with secondary repol abnrm Compared to ECG 11/04/2020 11:47:49 Myocardial infarct finding no longer present Electronically Signed On 12-26-2020 11:01:41 CDT by Ryan Mcelroy [email or web address] <ELECTRONICALLY SIGNED> By: Ryan Mcelroy MD 12/26/20 1101 1245 1245 Ryan Mcelroy MD /JON
[2020-12-26] MEDS ORDERED: NIFEDIPINE ER30 M1 PO ×2 (18:40→18:41)
[2020-12-26] MEDS ORDERED: ANORO ELLIPTA1 EACH INH (18:46)
[2020-12-26] MEDS ORDERED: PLAVIX 75 MG TA75 MG PO (18:47)
[2020-12-26] MEDS ORDERED: PROCARDIA XL60 MG PO (20:01)
[2020-12-27 00:02] VITALS: BP 182/73
[2020-12-27 03:43] VITALS: BP 163/73
--- NOTE | 2020-12-27 04:02 | NUR ---
Pt. sleeping soundly at beginning of shift and hard to wake up. at bedside visiting. She later woke up , ambulated with assist to bathroom.Woke up early this am and stated she is very hungry. [place] sandwich provided to pt. Also requested pain med for neck and back pain with some relief. Pt. stated she was hard to wake up because she is tired and just wants to sleep earlier. Maintaining O2 sat in the mid to upper 90's in RA. No respiratory distress. Bed alarm on for safety.
[2020-12-27 07:27] VITALS: BP 177/94
[2020-12-27 10:20] LABS: HEMOGLOBIN 12.3 gm/dL (12.0-15.0); MCH 30.9 pg (26.0-34.0); MCHC 34.1 g/dL (28.0-37.0); MCV 90.7 fL (80.0-100.0); RBC 3.96 mil/uL (4.20-5.00); RDW 15.1 % (10.5-14.5); WBC 7.8 thou/uL (4.0-11.0)
[2020-12-27 10:33] LABS: CALCIUM 8.4 mg/dL (8.5-10.1); CREATININE 1.8 mg/dL (0.6-1.0); POTASSIUM 3.3 mmol/L (3.5-5.1)
[2020-12-27 11:16] VITALS: BP 177/76
[2020-12-27 15:33] VITALS: BP 159/77
--- NOTE | 2020-12-27 18:38 | NUR ---
PATIENT FRUSTRATED WITH DECREASE IN PAIN MEDICATION AND STATES THAT PAIN HAS NOT BEEN ADEQUATELY CONTROLLED TODAY. DR NOTIFIED. DR IS ADJUSTING PAIN MEDICATION RELATED TO DEPRESSED RESPIRATIONS. HE WILL REEVALUATE IN THE MORNING.
[2020-12-27 19:29] VITALS: BP 166/77
--- NOTE | 2020-12-27 22:28 | NUR ---
PT RESTING IN BED WATCHING TV AND TALKING ON PHONE. PT C/O CHRONIC PAIN AND PRN PROVIDED X 1. PT VERBALIZED SHE WILL CALL FOR ASSISTANCE PRIOR TO AMBULATION, BED ALARM ON. HX L EYE BLIND AND L SIDE WEAKNESS. PT DECLINED HS SNACK.
[2020-12-28 05:12] VITALS: BP 160/74
[2020-12-28 07:30] VITALS: BP 178/80
[2020-12-28 11:03] VITALS: BP 178/80
--- NOTE | 2020-12-28 11:06 | NUR ---
INITIAL ASSESSMENT: Received consult for discharge planning. RANDY reviewed chart and spoke with nursing and attending physician. Pt was admitted from home due to CHF/Pneumonia. PT eval ordered today. Pt may be ready for discharge home later today. RANDY met with pt and spouse at bedside. Introduced role of SW. Pt is alert/orientated x 4. Pt and spouse live at home. Pt states she has a cane, walker and w/c to use if needed. Pt has used [facility] in the past, and is agreeable with using them again at time of discharge. Pt's PCP is Dr. Meneses. SW notified [facility] liaison of new referral. Discharge ppwk to be faxed when available. Contact info for HH placed in pt's discharge summary. Pt's family will provide transportation home. RANDY is following to assist as needed with discharge planning.
[2020-12-28 14:56] VITALS: BP 148/63
[2020-12-28 15:37] VITALS: BP 148/63
[2020-12-28] MEDS ORDERED: OXYCODONE HCL10 MG PO (16:39)
[2020-12-28] MEDS ORDERED: CLONAZEPAM 1 MG1 M1 PO (16:40)
[2020-12-28] MEDS ORDERED: TRAZODONE HCL50 MG PO (16:40)
== END 2020-12-28 18:44 | disposition home health service (06) | DRG 871 ==
LOC: ER 12:10 → EROBS 16:20 → 3W 16:20
PROVIDERS: Emergency Medicine; Internal Medicine Pulmonary Disease; ADMIT Family Medicine; ATTEND Family Medicine
DX: A41.9 Sepsis, unspecified organism (principal); J18.9 Pneumonia, unspecified organism; J96.21 Acute and chronic respiratory failure with hypoxia; I50.33 Acute on chronic diastolic (congestive) heart failure; I13.0 Hypertensive heart and chronic kidney disease with heart failure and stage 1 through stage 4 chronic kidney disease, or unspecified chronic kidney disease; N17.9 Acute kidney failure, unspecified; J91.8 Pleural effusion in other conditions classified elsewhere; I69.354 Hemiplegia and hemiparesis following cerebral infarction affecting left non-dominant side; G89.29 Other chronic pain; J44.9 Chronic obstructive pulmonary disease, unspecified; F17.210 Nicotine dependence, cigarettes, uncomplicated; G43.909 Migraine, unspecified, not intractable, without status migrainosus; N18.9 Chronic kidney disease, unspecified; F43.10 Post-traumatic stress disorder, unspecified; M54.9 Dorsalgia, unspecified; F41.9 Anxiety disorder, unspecified; I95.9 Hypotension, unspecified; Z20.822 Contact with and (suspected) exposure to COVID-19; Z85.828 Personal history of other malignant neoplasm of skin; Z98.1 Arthrodesis status; Z79.899 Other long term (current) drug therapy; Z90.710 Acquired absence of both cervix and uterus; Z98.891 History of uterine scar from previous surgery; Z88.1 Allergy status to other antibiotic agents; Z88.8 Allergy status to other drugs, medicaments and biological substances; Z72.89 Other problems related to lifestyle; Z99.3 Dependence on wheelchair; Z91.14 Patient's other noncompliance with medication regimen
CPT/HCPCS: 10779; 10879

== ENCOUNTER → 2021-03-01 | Outpatient (CLI) | payer OTHER ==
[~2021-03-01] MED LIST changes: +ANORO ELLIPTA1 EACH INH; +ASA81BEC PO; +BYSTOLIC20 MG PO; +CLONAZEPAM 1 MG1 M1 PO; +CRESTOR40 MG PO; +OXYCODONE HCL10 MG PO; +ROXICODONE5 MG PO; +TRAZODONE HCL50 MG PO
== END ==
LOC: SJCVCIMAG 08:20
PROVIDERS: ATTEND Nuclear Medicine Nuclear Cardiology
DX: I70.1 Atherosclerosis of renal artery (principal); I10 Essential (primary) hypertension; I65.23 Occlusion and stenosis of bilateral carotid arteries; E78.00 Pure hypercholesterolemia, unspecified; I12.9 Hypertensive chronic kidney disease with stage 1 through stage 4 chronic kidney disease, or unspecified chronic kidney disease; N18.9 Chronic kidney disease, unspecified; Z86.73 Personal history of transient ischemic attack (TIA), and cerebral infarction without residual deficits; G43.909 Migraine, unspecified, not intractable, without status migrainosus; Z79.899 Other long term (current) drug therapy; Z88.1 Allergy status to other antibiotic agents

== ENCOUNTER → 2021-03-02 | Outpatient (CLI) | payer OTHER ==
[2021-03-02 09:41] LABS: HEMATOCRIT 44.5 % (37.0-47.0); HEMOGLOBIN 14.7 gm/dL (12.0-15.0); MCH 29.9 pg (26.0-34.0); MCV 90.5 fL (80.0-100.0); RBC 4.91 mil/uL (4.20-5.00); RDW 16.6 % (10.5-14.5)
[2021-03-02 09:52] LABS: CREATININE 1.5 mg/dL (0.6-1.0); POTASSIUM 3.4 mmol/L (3.5-5.1)
== END | disposition home or self-care (01) ==
LOC: CATH 06:19
PROVIDERS: ATTEND Nuclear Medicine Nuclear Cardiology
DX: I15.0 Renovascular hypertension (principal); I70.1 Atherosclerosis of renal artery; T82.856A Stenosis of peripheral vascular stent, initial encounter; I73.9 Peripheral vascular disease, unspecified; I11.0 Hypertensive heart disease with heart failure; I50.9 Heart failure, unspecified; J44.9 Chronic obstructive pulmonary disease, unspecified; I25.2 Old myocardial infarction; E78.5 Hyperlipidemia, unspecified; E78.00 Pure hypercholesterolemia, unspecified; F41.9 Anxiety disorder, unspecified; G43.909 Migraine, unspecified, not intractable, without status migrainosus; Z98.890 Other specified postprocedural states; Z79.899 Other long term (current) drug therapy; Z90.710 Acquired absence of both cervix and uterus; Z86.73 Personal history of transient ischemic attack (TIA), and cerebral infarction without residual deficits; Z85.828 Personal history of other malignant neoplasm of skin; Z98.51 Tubal ligation status

== ENCOUNTER → 2021-05-05 | Outpatient (CLI) | payer OTHER | END | disposition home or self-care (01) | LOC: MRI 07:33 | PROVIDERS: ATTEND Orthopaedic Surgery | DX: M87.850 Other osteonecrosis, pelvis (principal); M67.451 Ganglion, right hip; S83.411S Sprain of medial collateral ligament of right knee, sequela; X58.XXXS Exposure to other specified factors, sequela ==

== ENCOUNTER → 2021-06-22 | Outpatient (CLI) | payer OTHER, MEDICARE | LOC: SJCVCIMAG 13:52 | PROVIDERS: ATTEND Nuclear Medicine Nuclear Cardiology | DX: I65.23 Occlusion and stenosis of bilateral carotid arteries (principal); I70.1 Atherosclerosis of renal artery; I77.9 Disorder of arteries and arterioles, unspecified; E78.00 Pure hypercholesterolemia, unspecified; I13.0 Hypertensive heart and chronic kidney disease with heart failure and stage 1 through stage 4 chronic kidney disease, or unspecified chronic kidney disease; I50.23 Acute on chronic systolic (congestive) heart failure; N18.9 Chronic kidney disease, unspecified; J96.20 Acute and chronic respiratory failure, unspecified whether with hypoxia or hypercapnia; R73.9 Hyperglycemia, unspecified; F17.210 Nicotine dependence, cigarettes, uncomplicated; Z86.73 Personal history of transient ischemic attack (TIA), and cerebral infarction without residual deficits; Z88.8 Allergy status to other drugs, medicaments and biological substances; Z79.82 Long term (current) use of aspirin; Z79.899 Other long term (current) drug therapy; Z72.89 Other problems related to lifestyle ==

== ENCOUNTER → 2021-07-06 | Outpatient (CLI) | payer OTHER, MEDICARE | LOC: MRI 09:59 | DX: M43.27 Fusion of spine, lumbosacral region (principal); M51.16 Intervertebral disc disorders with radiculopathy, lumbar region; M48.061 Spinal stenosis, lumbar region without neurogenic claudication ==

== ENCOUNTER → 2021-08-08 | Outpatient (CLI) | payer OTHER, MEDICARE | LOC: CAT 10:03 | DX: M47.26 Other spondylosis with radiculopathy, lumbar region (principal); M51.36 Other intervertebral disc degeneration, lumbar region; M43.8X6 Other specified deforming dorsopathies, lumbar region; M43.27 Fusion of spine, lumbosacral region; N26.1 Atrophy of kidney (terminal) ==